=== PATIENT | male | born 1965 | race Caucasian/White ===

== ENCOUNTER 2018-03-18 00:23 | Emergency (ER) | payer MEDICARE, OTHER ==
--- NOTE | 2018-03-18 08:13 | RAD ---
PA AND LATERAL CHEST: History: Cough. FINDINGS: Comparison made with exam of 06-15-15. The heart size is normal. The lungs are expanded without focal areas of consolidation, pneumothorax, or pleural effusions. No acute osseous abnormality is seen. IMPRESSION: No acute process. POS: [facility]
== END 2018-03-18 01:23 | disposition home or self-care (01) ==
LOC: SCSER 00:23
DX: J20.9 Acute bronchitis, unspecified (principal); N18.6 End stage renal disease; F17.210 Nicotine dependence, cigarettes, uncomplicated; Z99.2 Dependence on renal dialysis; Z79.899 Other long term (current) drug therapy
CPT/HCPCS: 71046; 94640; J7620

== ENCOUNTER 2018-03-27 09:14 | Outpatient (CLI) | payer MEDICARE ==
[2018-03-27] MEDS ORDERED: ISOVUE-370 76%-LOCM 1 ML ONE (20:19)
== END 2018-03-27 09:15 | disposition home or self-care (01) ==
LOC: BICCT 09:14
PROVIDERS: ATTEND Internal Medicine Nephrology
DX: N28.89 Other specified disorders of kidney and ureter (principal); N26.1 Atrophy of kidney (terminal)
CPT/HCPCS: 74178

== ENCOUNTER 2018-11-08 14:28 | Emergency (ER) | payer MEDICARE ==
[2018-11-08] MEDS ORDERED: Metoclopramide HCl 10 MG/2 ML VIAL ONE ×2 (15:33→15:36)
[2018-11-08] MEDS ORDERED: Ketorolac Tromethamine 30 MG/ML VIAL ONE (15:33)
[2018-11-08] MEDS ORDERED: diphenhydrAMINE 50 MG/ML VIAL ONE (15:33)
[2018-11-08] MEDS ORDERED: Magnesium 2 GM/50 ML BAG (IN WATER) ONE (16:46)
[2018-11-08] MEDS ORDERED: methylPREDNISolone Sod Succ/PF 125 MG/2 ML VIAL ONE (16:46)
== END 2018-11-08 18:35 | disposition home or self-care (01) ==
LOC: ERS 14:28
DX: G43.909 Migraine, unspecified, not intractable, without status migrainosus (principal); N18.6 End stage renal disease; F17.210 Nicotine dependence, cigarettes, uncomplicated; Z79.899 Other long term (current) drug therapy
CPT/HCPCS: 96365; 96367; 96375; J1200; J1885; J2765; J2930

== ENCOUNTER 2018-12-14 09:14 | Emergency (ER) | payer MEDICARE ==
[2018-12-14] MEDS ORDERED: diphenhydrAMINE 50 MG/ML VIAL ONE (10:16)
[2018-12-14] MEDS ORDERED: Acetaminophen 500 MG TAB ONE (10:16)
[2018-12-14] MEDS ORDERED: Metoclopramide HCl 10 MG/2 ML VIAL ONE (10:16)
[2018-12-14] MEDS ORDERED: Ketorolac Tromethamine 30 MG/ML VIAL ONE (10:16)
[2018-12-14] MEDS ORDERED: methylPREDNISolone Sod Succ/PF 125 MG/2 ML VIAL ONE (10:52)
[2018-12-14] MEDS ORDERED: Magnesium 2 GM/50 ML BAG (IN WATER) ONE (10:52)
== END 2018-12-14 11:26 | disposition home or self-care (01) ==
LOC: ERS 09:14
DX: G43.909 Migraine, unspecified, not intractable, without status migrainosus (principal); I10 Essential (primary) hypertension; I12.0 Hypertensive chronic kidney disease with stage 5 chronic kidney disease or end stage renal disease; N18.6 End stage renal disease; F17.210 Nicotine dependence, cigarettes, uncomplicated; Z79.899 Other long term (current) drug therapy
CPT/HCPCS: 96365; 96375; J1200; J1885; J2765; J2930

== ENCOUNTER 2019-04-11 09:42 | Emergency (ER) | payer MEDICARE ==
[2019-04-11 10:07] LABS: #Basophils 0.1 thou/uL (0.0-0.2); #Eosinphils 0.4 thou/uL (0.0-0.7); #Lymphocytes 2.3 thou/uL (1.20-3.40); #Monocytes 0.5 thou/uL (0.11-0.59); #Neutrophils 4.4 thou/uL (1.40-6.50); %Basophils 1.5 % (0.0-1.0); %Lymphocytes 29.5 % (21.0-51.0); %Neutrophils 58.1 % (42.0-75.0); Mean Corpuscular HGB CONC 33.9 g/dL (32.0-36.0); Mean Corpuscular Hemoglobin 33.8 pg (27.0-31.0); Mean Corpuscular Volume 99.8 fL (78.0-98.0); Mean Platelet Volume 8.2 fL (7.4-10.4); Platelet Count 168 thou/uL (130-400); RBC Distribution Width 14.4 % (11.5-14.5); Red Blood Cell (RBC) Count 4.14 mill/uL (4.70-6.10); White Blood Cell (WBC) Count 7.6 thou/uL (4.8-10.8)
[2019-04-11 10:30] LABS: ALT (SGPT) Less than 7 U/L (8-55); AST (SGOT) 11 U/L (5-34); Albumin 3.7 g/dL (3.5-5.0); Alkaline Phosphatase 38 U/L (40-150); Anion Gap 20 mmol/L (10-20); BUN (Urea Nitrogen) 42 mg/dL (8.4-25.7); Bilirubin, Total 0.6 mg/dL (0.2-1.2); Calc. Creatinine Clearance 0 mL/min (70-130); Calcium 9.9 mg/dL (7.8-10.44); Carbon Dioxide 33 mmol/L (22-29); Chloride 85 mmol/L (98-107); Estimated GFR-MDRD 4; Globulin 2.7 g/dL (2.4-3.5); Glucose 87 mg/dL (70-105); Potassium 3.4 mmol/L (3.5-5.1); Protein, Total 6.4 g/dL (6.0-8.3); Sodium 135 mmol/L (136-145)
--- NOTE | 2019-04-11 11:13 | ULT ---
Ultrasound Doppler duplex venous right upper extremity: 04/11/2019 HISTORY: 53-year-old male with right upper extremity pain and swelling. TECHNIQUE: Grayscale, color-flow, and spectral analysis, of major veins of right upper extremity. FINDINGS: There is a dialysis fistulous connection at the antecubital region between the brachial artery and ce phalic vein. The cephalic vein is "aneurysmally" dilated, as expected for dialysis access. There is a large thrombus occupying approximately 75% of the cross-sectional area of the dilated cephalic vein , in the distal and mid arm. There is blood flow in this vein adjacent to the thrombus. The proximal portion of the cephalic vein has no thrombus, and has flow, as does the right brachial, basi lic, radial, ulnar, internal jugular, and subclavian, veins. Actually there is an obliquely orientated synthetic graft measuring approximately 2.5 to 3 cm, crossing a portion of the right subcl kathryn vein. There is little or no blood flow within this graft. The exact relationship of this graft with the subclavian vein is uncertain. IMPRESSION: 1. Arteriovenous dialysis fistula (dilated right cephalic vein) in the right arm that contains a nono ccluding large thrombus. 2. Obliquely oriented vascular stent in the right subclavian region which may be partially or complet yg occluded, despite the fact that the portions of the subclavian vein proximal and distal to it are patent. The exact relationship is uncertain.
== END 2019-04-11 11:37 | disposition home or self-care (01) ==
LOC: ERS 09:42
DX: T82.868A Thrombosis due to vascular prosthetic devices, implants and grafts, initial encounter (principal); I12.0 Hypertensive chronic kidney disease with stage 5 chronic kidney disease or end stage renal disease; F17.210 Nicotine dependence, cigarettes, uncomplicated; Z79.899 Other long term (current) drug therapy
CPT/HCPCS: 36415; 80053; 83880; 85025

== ENCOUNTER 2019-04-16 06:01 | Day surgery (SDC) | payer MEDICARE ==
--- NOTE | 2019-04-16 06:22 | HP ---
HISTORY OF PRESENT ILLNESS: Joni Wen is a 53-year-old male patient who I established a fistula in 2012, right Nael. This worked well until 2014 when it had to be revised due to multiple infiltrations and outflow obstructions to a more proximal fistula, antecubital vein to proximal radial artery had outflow basilic and cephalic vein. I had not seen him in several years. 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 Dr. Victoria at the [facility] has performed a fistulogram yesterday noting obstruction of the subclavian vein. The patient has a very painful right arm fistula, although patent and prominent pulsatile. They could not access it at [facility] where he dialyzes Friday, , and Friday. He is followed by Dr. Marquez. The patient has an excellent left wrist cephalic vein, palpable radial pulse. He has had bilateral inguinal hernia repairs. Has chronic umbilical pain for the last few years, but no evidence of umbilical hernia. I discussed with him regarding possibility of a peritoneal dialysis catheter and he is interested in that. We will discuss that with the dialysis center. Plan at this time is placement of a hemodialysis catheter as he has not dialyzed since earlier this week and could not dialyze yesterday. We will plan placement of a hemodialysis catheter, right or left IJ, possible groin tomorrow. IV sedation and local outpatient. He will dialyze tomorrow afternoon. Next week, we will return to the operating room under general anesthesia and plan ligation and excision of his painful right upper arm fistula, establishment of a left arm fistula, Nael type more than likely and most likely laparoscopic peritoneal dialysis catheter placement. He will discuss this with the peritoneal dialysis nurse and view the video and if he decides not to do this latter part, we will not. ALLERGIES: BACTRIM AND LATEX. MEDICATIONS: Amlodipine 10 mg a day, lisinopril 12.5 mg a day, carvedilol mg a day, valproic acid 250 mg twice a day, hydrocodone 10/25 as needed for pain. PAST MEDICAL HISTORY: Nephrotic syndrome, end-stage renal disease, on maintenance dialysis. PAST SURGICAL HISTORY: Bilateral inguinal hernia repair in [place] in 2000, renal biopsy in 2009, elbow surgery, fasciotomy, Nael fistula right arm 2012, revision 2014, and stent, right subclavian vein subsequently. PHYSICAL EXAMINATION: VITAL SIGNS: Blood pressure 133/61, pulse 68, temperature 98.6 degrees, weight 164 pounds. HEENT: Unremarkable. LUNGS: Clear to auscultation. CARDIAC: Regular rate and rhythm without murmur or gallop. ABDOMEN: Soft, flat, nontender. On standing, both groins without hernia. Testicles are normal. Umbilicus without hernia. Mild pain on palpation. Flat abdomen. Nontender. No masses palpable. EXTREMITIES: Radial pulses bilaterally excellent to cephalic vein, wrist and forearm and with a good antecubital vein, all good for primary fistula left arm. Prominent fistula right upper arm with prominent pulsations, very tender without evidence of infection. ASSESSMENT/PLAN: Dialysis fistula malfunction with subclavian vein obstruction right with a stent, not amenable to further dialysis access, right arm. PLAN: As noted above, left arm fistula ligation and right arm fistula, hemodialysis catheter, laparoscopic peritoneal dialysis catheter. He understands risks and benefits, consents. Job ID: [id number]
[2019-04-16] MEDS ORDERED: Bupivacaine HCl 0.5%/Epinephrine 1:200,000/PF 30 ml Vial ONE (06:36)
[2019-04-16] MEDS ORDERED: Lidocaine 1% (PF) 30 ML VIAL ONE (06:36)
[2019-04-16] MEDS ORDERED: Sodium Chloride 0.9% 10 ML ONE ×2 (06:39→07:18)
[2019-04-16 06:58] LABS: #Basophils 0.1 thou/uL (0.0-0.2); #Eosinphils 0.3 thou/uL (0.0-0.7); #Monocytes 0.6 thou/uL (0.11-0.59); #Neutrophils 3.6 thou/uL (1.40-6.50); %Basophils 1.6 % (0.0-1.0); %Eosinophils 5.2 % (0.0-10.0); %Lymphocytes 29.9 % (21.0-51.0); %Monocytes 8.8 % (0.0-10.0); %Neutrophils 54.5 % (42.0-75.0); Hemoglobin 12.2 g/dL (14.0-18.0); Mean Corpuscular HGB CONC 33.5 g/dL (32.0-36.0); Mean Corpuscular Hemoglobin 33.5 pg (27.0-31.0); Platelet Count 203 thou/uL (130-400); RBC Distribution Width 13.9 % (11.5-14.5); Red Blood Cell (RBC) Count 3.63 mill/uL (4.70-6.10); White Blood Cell (WBC) Count 6.5 thou/uL (4.8-10.8)
[2019-04-16] MEDS ORDERED: Meperidine HCl/PF 25 MG/ML VIAL ONE (06:58)
[2019-04-16] MEDS ORDERED: Midazolam HCl 2 mg/2 ml Vial ONE (06:58)
[2019-04-16] MEDS ORDERED: Heparin 5,000 UNITS/ML VIAL ONE (07:10)
[2019-04-16] MEDS ORDERED: Protamine Sulfate 50 MG/5 ML VIAL ONE (07:10)
[2019-04-16] MEDS ORDERED: Lidocaine 2% PF 5 ML VIAL ONE (07:11)
[2019-04-16 07:34] LABS: Potassium 4.3 mmol/L (3.5-5.1)
[2019-04-16] MEDS ORDERED: HYDROcodone/Acetaminophen 5/325 mg Tablet ONE (11:58)
--- NOTE | 2019-04-16 12:26 | RAD ---
CHEST 1 VIEW: HISTORY: Status post hemodialysis catheter placement. FINDINGS: Left-sided hemodialysis catheter placement without pneumothorax or pleural effusion or other acute pr ocess. IMPRESSION: Left hemodialysis catheter placement without complication. No significant new process. POS: [facility]
[2019-04-16] MEDS ORDERED: Heparin 10,000 UNITS/ 10 ML VIAL ONE (12:44)
--- NOTE | 2019-04-16 13:34 | OP ---
DATE OF PROCEDURE: 04/16/2019 PREOPERATIVE DIAGNOSES: End-stage renal disease, right subclavian vein stent with occlusion, venous hypertension, right arm with intractable pain, aneurysmal dilatation, right upper arm cephalic vein fistula, and need of dialysis access. POSTOPERATIVE DIAGNOSES: End-stage renal disease, right subclavian vein stent with occlusion, venous hypertension, right arm with intractable pain, aneurysmal dilatation, right upper arm cephalic vein fistula, and need of dialysis access. PROCEDURE PERFORMED: Placement of the left internal jugular vein cuffed tunneled hemodialysis catheter. Right internal jugular vein cannulated, but J-wire would not thread indicating outflow obstruction. Fluoroscopy use. Ligation of right arm fistula with excision of aneurysm and layered closure of 10 cm incision upper arm. Brachial radial artery repair. ESTIMATED BLOOD LOSS: 2500 mL blood loss. 3 units of blood transfused. Note during the procedure, the inflow of the cephalic vein fistula from the proximal radial artery was dissected free and there was hemorrhage requiring dissection resulted in the blood loss. ANESTHESIA: General, local 0.5% Marcaine with epinephrine 30 mL mixed to 2% Xylocaine 10 mL, total volume used between the surgical sites. DESCRIPTION OF PROCEDURE: The patient was taken to the operating room, where under general anesthesia, neck, chest, and right upper extremity were prepared with ChloraPrep and draped in routine fashion. Local anesthetic was infiltrated into the skin and subcutaneous tissue about all operative sites. Initially, using ultrasound guidance, I cannulated the right internal jugular vein, but the J-wire not thread, indicating outflow obstruction. Left internal jugular vein was cannulated with trocar catheter under ultrasound guidance, and J-wire threaded, fluoroscopically noted to be in the superior vena cava. Stab incision was made at the J-wire entry site and over the planned exit site left chest infraclavicular, and using the tunneling device, a precurved [employer] cuffed-tunneled hemodialysis catheter tunneled between the 2 incisions, placed the fabric cuff beneath the skin exit site. Catheter was secured with 2 interrupted sutures of 3-0 nylon. Sterile dressings applied. The small and medium size dilators were placed with J-wire and the internal jugular vein removed. Dilator and Peel-Away sheath placed under fluoroscopic visualization in the superior vena cava, and dilator and J-wire were removed, catheter placed through the Peel-Away sheath, and Peel-Away sheath removed. Fluoroscopic images revealed good line placement. Platysma was approximated with 4-0 Monocryl, skin with subdermal 4-0 Monocryl and Dargan glue and sterile dressings applied. Each port aspirated blood, flushed with saline solution and heparinized saline solution 1000 units heparin per mL indicating volume of the port. Attention was then turned to the right arm. He had a large aneurysmal dilatation of his cephalic vein fistula upper arm with basilic vein branch patent and obstruction of the outflow of the subclavian vein that had been previously stented. This was extremely painful. There was large aneurysmal dilatation removed. Incision was first made in the antecubital area through an old scar, carried down skin and subcutaneous tissue and the inflow of the fistula dissected free. In doing so, there was hemorrhage. I then had to extend the incision and considering the bleeding, I made another incision in the medial upper arm just above the antecubital fossa and dissected the brachial artery free, and the patient was given 6000 units of heparin intravenously, and then, I clamped the brachial artery to allow better arterial inflow control. Once this was performed, continued finger pressure was held to control the hemorrhage in the forearm. I then returned to the forearm, enlarged the incision and dissected the fistula. The venous outflow cephalic vein was ligated with a 2-0 silk tie. The basilic vein outflow was ligated with 2-0 silk tie, these were divided and the stump clamped. I was then able to dissect this down identifying the problem, where the vein was markedly dilated at the arterial anastomosis, and this was where it had torn and where it was hemorrhaging. Even though I controlled the proximal brachial artery, there was still considerable bleeding retrograde from the radial artery and ulnar artery. This radial artery was identified, dissected free, clamped with a vascular clamp. I was then able to dissect and identified the problem. There was enough venous cuff from the previous anastomosis to close this transversely. I then closed this transversely with continuous suture of 6-0 Prolene. Once this was closed, vascular clamps were released and there was good flow in the artery. The patient was given 50 mg of protamine by Anesthesia. Good hemostasis was noted. I then turned my attention to the fistula aneurysm in the upper arm. An ellipse of skin was excised and the aneurysm dissected free from surrounding tissues. Branches divided between 3-0 silk ties. The inflow of the AV fistula aneurysm was then ligated with 2-0 silk tie as well as the outflow and the aneurysmal dilatation dissected free and excised, discarded. Hemostasis was gained with the cautery. Surgicel was placed in the surgical bed. Subcutaneous tissue was approximated with 3-0 Monocryl, skin with subdermal 4-0 Monocryl. The other incision was closed likewise and Dargan glue applied. Local anesthetic was infiltrated into the skin and subcutaneous tissue about the operative site. The patient procedure well. Job ID: [id number]
--- NOTE | 2019-04-17 13:53 | EKG ---
Test Reason : PREOP Blood Pressure : / mmHG Vent. Rate : 066 BPM Atrial Rate : 066 BPM P-R Int : 182 ms QRS Dur : 106 ms QT Int : 394 ms P-R-T Axes : 061 058 051 degrees QTc Int : 413 ms Normal sinus rhythm Normal ECG When compared with ECG of 10-OCT-2016 05:20, No significant change was found Confirmed by DR. Queenie HERMAN ([id number]) on 04/17/2019 1:52:52 PM Referred By: TONI Confirmed By:DR. Queenie HERMAN
== END 2019-04-16 13:00 | disposition home or self-care (01) ==
LOC: SDC 06:01
PROVIDERS: ATTEND Specialist
PROC: 05HN33Z Insertion of Infusion Device into Left Internal Jugular Vein, Percutaneous Approach (ICD-10-PCS; principal; 2019-04-16)
PROC: 05LD0ZZ Occlusion of Right Cephalic Vein, Open Approach (ICD-10-PCS; 2019-04-16)
DX: I77.0 Arteriovenous fistula, acquired (principal); N18.6 End stage renal disease; I87.301 Chronic venous hypertension (idiopathic) without complications of right lower extremity; Z79.899 Other long term (current) drug therapy; Z88.1 Allergy status to other antibiotic agents; Z88.5 Allergy status to narcotic agent; Z91.040 Latex allergy status
CPT/HCPCS: 36430; 36558; 37607; 71045; 84132; 85025; 86850; 86900; 86901; 86920; 93005; C1752; C1769; P9016; 36415; 93010; J0670; J0690; J1642; J1644; J2001; J2175; J2250; J2720

== ENCOUNTER 2019-04-21 09:15 | Day surgery (SDC) | payer MEDICARE ==
[2019-04-20 15:14] VITALS: BMI 23.6
[2019-04-21 10:27] LABS: #Basophils 0.1 thou/uL (0.0-0.2); #Eosinphils 0.4 thou/uL (0.0-0.7); #Lymphocytes 2.1 thou/uL (1.20-3.40); #Monocytes 0.6 thou/uL (0.11-0.59); %Basophils 1.3 % (0.0-1.0); %Eosinophils 5.5 % (0.0-10.0); %Lymphocytes 28.5 % (21.0-51.0); %Monocytes 8.6 % (0.0-10.0); Hemoglobin 12.2 g/dL (14.0-18.0); Mean Corpuscular HGB CONC 33.2 g/dL (32.0-36.0); Mean Corpuscular Hemoglobin 32.9 pg (27.0-31.0); Platelet Count 243 thou/uL (130-400); RBC Distribution Width 13.4 % (11.5-14.5); Red Blood Cell (RBC) Count 3.71 mill/uL (4.70-6.10); White Blood Cell (WBC) Count 7.2 thou/uL (4.8-10.8)
[2019-04-21 10:46] LABS: Anion Gap 14 mmol/L (10-20); BUN (Urea Nitrogen) 17 mg/dL (8.4-25.7); Calc. Creatinine Clearance 10 mL/min (70-130); Calcium 9.3 mg/dL (7.8-10.44); Carbon Dioxide 32 mmol/L (22-29); Chloride 93 mmol/L (98-107); Estimated GFR-MDRD 7; Glucose 69 mg/dL (70-105); Sodium 135 mmol/L (136-145)
[2019-04-21] MEDS ORDERED: Fentanyl 100 MCG/2 ML VIAL ONE (11:31)
[2019-04-21] MEDS ORDERED: Heparin 5,000 UNITS/ML VIAL ONE (11:32)
[2019-04-21] MEDS ORDERED: Lidocaine 2% PF 5 ML VIAL ONE (11:32)
[2019-04-21] MEDS ORDERED: Protamine Sulfate 50 MG/5 ML VIAL ONE (11:32)
[2019-04-21] MEDS ORDERED: Bupivacaine HCl 0.5%/Epinephrine 1:200,000/PF 30 ml Vial ONE (11:32)
[2019-04-21] MEDS ORDERED: Heparin 10,000 UNITS/ 10 ML VIAL ONE ×2 (14:26→14:37)
[2019-04-21] MEDS ORDERED: PHENYLEPHRINE-NS 100 MCG/ML 10 ML SYRINGE ONE (14:37)
[2019-04-21] MEDS ORDERED: PROPOFOL 200 MG/20 ML VIAL ONE (14:37)
[2019-04-21] MEDS ORDERED: Ondansetron PF 4 MG/2 ML Vial ONE (14:37)
[2019-04-21] MEDS ORDERED: ePHEDrine 50 MG/ML VIAL ONE (14:37)
--- NOTE | 2019-04-21 17:49 | OP ---
DATE OF PROCEDURE: 04/21/2019 PREOPERATIVE DIAGNOSES: End-stage renal disease, dysfunctional right arteriovenous fistula, status post ligation, subclavian vein occlusion, cephalic vein outflow, right arm problems requiring ligation, left arm Nael fistula, radial artery of good quality, cephalic vein outflow calibrated to 3.5 mm coronary dilator, branches ligated laterally. ANESTHESIA: General and local 0.5% Marcaine with epinephrine 30 mL mixed with 2% Xylocaine 10 mL, 10 mL mixture used. DESCRIPTION OF PROCEDURE: The patient was taken to the operating room, where under general anesthesia, left upper extremity was prepared with ChloraPrep and draped in routine fashion. Incision was longitudinally made between this cephalic vein and radial artery at the wrist, carried through the skin and subcutaneous tissue, and the cephalic vein and radial artery were dissected free. The radial artery was controlled proximally and distally, and cephalic vein ligated on the hand side with a 3-0 silk tie, divided, spatulated, and interrogated with coronary dilators, passing coronary dilators from 2 mm to 3.5 mm, unobstructed out the outflow. It had good back bleeding. It was flushed with heparinized saline solution. The patient was given 6000 units of heparin intravenously by Anesthesia. A vascular clamp was placed on the cephalic vein. Radial arteriotomy was made sharply, elongated with Starr scissors for 2.5 cm anastomosis and cephalic vein likely spatulated accordingly, and cephalic vein to side radial artery anastomosis was created with continuous suture of 6-0 Prolene. Good hemostasis was noted as vascular clamps were released. There was good flow in the fistula. The patient was given 25 mg protamine intravenously by Anesthesia. There was good Doppler signal in the venous outflow with Nael fistula. There was a branch point laterally that was ligated through a small incision, ligated with 4-0 silk ties. Incisions were approximated by approximating subcutaneous tissue with 3-0 Monocryl and skin with subdermal 4-0 Monocryl, and [place] glue applied. Job ID: [id number]
== END 2019-04-21 14:40 | disposition home or self-care (01) ==
LOC: SDC 09:15
PROVIDERS: ATTEND Specialist
PROC: 031C0ZF Bypass Left Radial Artery to Lower Arm Vein, Open Approach (ICD-10-PCS; principal; 2019-04-21)
DX: N18.6 End stage renal disease (principal); T82.590A Other mechanical complication of surgically created arteriovenous fistula, initial encounter; Z79.899 Other long term (current) drug therapy; Z88.2 Allergy status to sulfonamides; Z88.8 Allergy status to other drugs, medicaments and biological substances; Z91.040 Latex allergy status; Z91.018 Allergy to other foods; Z99.2 Dependence on renal dialysis
CPT/HCPCS: 80048; 85025; J0670; J0690; J1644; J2001; J2405; J2704; J2720; J3010; J3490

== ENCOUNTER 2019-08-26 10:35 | Inpatient (IN) | payer MEDICARE ==
[~2019-08-26 10:35] MED LIST: ISOVUE-370 76%-LOCM 1 ML ONE
[2019-08-26] MEDS ORDERED: Lorazepam 2 MG/ML VIAL ONE (10:51)
[2019-08-26 10:58] LABS: #Basophils 0.1 thou/uL (0.0-0.2); #Eosinphils 0.1 thou/uL (0.0-0.7); #Lymphocytes 1.1 thou/uL (1.20-3.40); #Monocytes 0.4 thou/uL (0.11-0.59); #Neutrophils 4.6 thou/uL (1.40-6.50); %Basophils 1.5 % (0.0-1.0); %Eosinophils 1.5 % (0.0-10.0); %Lymphocytes 17.5 % (21.0-51.0); %Monocytes 6.4 % (0.0-10.0); %Neutrophils 73.1 % (42.0-75.0); Hemoglobin 10.7 g/dL (14.0-18.0); Mean Corpuscular HGB CONC 35.3 g/dL (32.0-36.0); Mean Corpuscular Hemoglobin 32.5 pg (27.0-31.0); Mean Corpuscular Volume 91.9 fL (78.0-98.0); Mean Platelet Volume 8.2 fL (7.4-10.4); Platelet Count 149 thou/uL (130-400); RBC Distribution Width 14.7 % (11.5-14.5); Red Blood Cell (RBC) Count 3.31 mill/uL (4.70-6.10); White Blood Cell (WBC) Count 6.3 thou/uL (4.8-10.8)
[2019-08-26 11:03] LABS: Prothrombin Time 12.7 SEC (12.0-14.7)
[2019-08-26 11:04] LABS: PTT 32.3 SEC (22.9-36.1)
--- NOTE | 2019-08-26 11:06 | CT ---
Exam: CTA neck with contrast CTA head with contrast HISTORY: Altered mental status and combative COMPARISON: None TECHNIQUE: 1. Multiple contiguous axial images were obtained and a CTA of the neck with contrast. 3-D sagittal a nd coronal MIP reformats were performed. 2. Multiple contiguous axial images were obtained and a CTA of the head with contrast. 3-D sagittal a nd coronal MIP reformats were performed. FINDINGS: This exam is limited secondary to motion artifact. CTA NECK: Aortic arch: Normal origin of the carotid arteries from the arch. No significant atherosclerotic dise ase of the subclavian arteries. Right common carotid artery: No significant atherosclerotic disease or narrowing. Mild atheroscleroti c disease is seen in the distal common carotid artery. Left common carotid artery: No significant atherosclerotic disease or narrowing. Mild atherosclerotic disease is seen in the distal common carotid artery. Right internal carotid artery: No significant atherosclerotic disease or narrowing per NASCET criteri a Right external carotid artery: No significant atherosclerotic disease or narrowing Left internal carotid artery: No significant atherosclerotic disease or narrowing per NASCET criteri a Left external carotid artery: No significant atherosclerotic disease or narrowing Right cervical vertebral artery: No significant atherosclerotic disease or narrowing Left cervical vertebral artery: No significant atherosclerotic disease or narrowing No cervical adenopathy. The lung apices are unremarkable. The osseous structures are unremarkable. CTA HEAD: Right intracranial internal carotid artery: Patent without narrowing or occlusion Right anterior cerebral artery: Patent without narrowing or occlusion Right middle cerebral artery: Patent without narrowing or occlusion Left intracranial internal carotid artery: Patent without narrowing or occlusion Left anterior cerebral artery: Patent without narrowing or occlusion Left middle cerebral artery: Patent without narrowing or occlusion No aneurysmal dilatation is seen in the anterior circulation. Right vertebral artery: Patent without narrowing or occlusion Left vertebral artery: Patent without narrowing or occlusion Basilar artery: Patent without narrowing or occlusion The posterior cerebral arteries and cerebellar arteries are patent without narrowing or occlusion. No aneurysmal dilatation is seen in the posterior circulation. IMPRESSION: 1. No significant CTA abnormality of the neck 2. No significant CTA abnormality of the head Dr. Henry Notified of findings at 11:03 AM on 08/26/2019.
[2019-08-26] MEDS ORDERED: hydrALAZINE 20 MG/ML VIAL ONE (11:11)
[2019-08-26 11:14] LABS: ALT (SGPT) Less than 7 U/L (8-55); AST (SGOT) 13 U/L (5-34); Albumin 4.2 g/dL (3.5-5.0); Alkaline Phosphatase 40 U/L (40-110); Anion Gap 28 mmol/L (10-20); BUN (Urea Nitrogen) 20 mg/dL (8.4-25.7); Bilirubin, Total 0.4 mg/dL (0.2-1.2); CK (CPK) 177 U/L (30-200); Calc. Creatinine Clearance 0 mL/min (70-130); Carbon Dioxide 24 mmol/L (22-29); Chloride 88 mmol/L (98-107); Estimated GFR-MDRD 6; Globulin 2.9 g/dL (2.4-3.5); Glucose 106 mg/dL (70-105); Potassium 3.9 mmol/L (3.5-5.1); Protein, Total 7.1 g/dL (6.0-8.3); Sodium 136 mmol/L (136-145)
--- NOTE | 2019-08-26 11:41 | CT ---
CT HEAD NONCONTRAST: Date: 08/26/19 INDICATION: Stroke alert. FINDINGS: There is no evidence of acute intracranial hemorrhage, mass effect, or midline shift. Paranasal sinus es are clear. Incidental note of radiopaque foreign body of the inferior right buccal soft tissues, a nteriorly. IMPRESSION: No acute intracranial hemorrhage or mass effect. Telephone call placed to Dr. Henry at 1042 hours on 08/26/19. CODE CR.
[2019-08-26] MEDS ORDERED: niCARdipine 20MG In NaCl 20 MG/200 ML BAG ONE (11:43)
--- NOTE | 2019-08-26 11:48 | CT ---
CT CERVICAL SPINE WITH MULTIPLANAR RECONSTRUCTION: Date: 08/26/19 INDICATION: Trauma. FINDINGS: Cervical vertebra maintain normal height and alignment. Mild degenerative changes are noted with ante rior osteophytes and posterior spondylitic change. There is no evidence of fracture identified. IMPRESSION: There are mild degenerative changes of the cervical spine. No evidence of acute fracture. POS: [facility]
[2019-08-26] MEDS ORDERED: Ondansetron PF 4 MG/2 ML Vial ONE (14:05)
[2019-08-26 14:07] LABS: Troponin I 0.029 ng/mL (< 0.028)
[2019-08-26] MEDS ORDERED: Lorazepam 2 MG/ML VIAL SLOW IVP PRN (14:39)
[2019-08-26] MEDS ORDERED: niCARdipine 40MG In NaCl 40 MG/200 ML BAG IVPB SCH (14:45)
--- NOTE | 2019-08-26 15:50 | CON ---
DATE OF CONSULTATION: 08/26/2019 CONSULTING PHYSICIAN: Dr. Jenkins. REASON FOR CONSULTATION: End-stage renal disease evaluation. REASON FOR ADMISSION: Headache and seizures. HISTORY OF PRESENT ILLNESS: A 53-year-old male with a history of end-stage renal disease, on hemodialysis; anemia; gastroesophageal reflux disease; came to the hospital with above complaints. The patient's blood pressure was found to be high, also has seizure and headache, and was sent to the hospital. He is seen in the ER, is sedated now, and no family members available. PAST MEDICAL HISTORY: Positive for end-stage renal disease, anemia, gastroesophageal reflux disease. PAST SURGICAL HISTORY: Dialysis access placement. HOME MEDICATIONS: Pending. ALLERGIES: LATEX, STRAWBERRY, ZOLPIDEM. SOCIAL HISTORY: No smoking, alcohol, or illicit drugs. FAMILY HISTORY: No history of kidney disease. REVIEW OF SYSTEMS: Cannot be obtained due to sedation. PHYSICAL EXAMINATION: GENERAL: This is a well-built male, sedative. VITAL SIGNS: Temperature 98.6, pulse 78, respiratory rate 18, blood pressure 170/90. HEENT: Atraumatic and normocephalic. Oral mucosa moist. NECK: Supple. CVS: S1 and S2 heard. RESPIRATORY: Clear. GI: Abdomen is soft. MUSCULOSKELETAL: No tenderness. No edema. DERMATOLOGIC: No skin rash. NEUROLOGIC: Somnolent. LABORATORY DATA: Hemoglobin is 10.7, potassium 3.9, BUN is 20, and creatinine is 8.7. ASSESSMENT AND PLAN: 1. End-stage renal disease. No acute indication for dialysis. We will continue on dialysis as tolerated. 2. Hypertension. Continue home medication. Continue on a Cardene drip and home medications. 3. Edema, controlled. 4. Anemia of chronic disease, stable. 5. Plan to continue dialysis Friday, Friday, Friday. No dialysis today. Continue medication for blood pressure control. Thank you for the consult. Job ID: [id number]
--- NOTE | 2019-08-26 16:36 | CON ---
DATE OF CONSULTATION: 08/26/2019 REASON FOR CONSULTATION: Hypertensive emergency. HISTORY OF PRESENT ILLNESS: The patient is a 53-year-old male who came into the hospital today with a profoundly elevated blood pressure. I believe it was over 200. He was placed on a Cardene drip. It is already down to 160/85 and he feels better. PAST MEDICAL HISTORY: 1. End-stage renal disease, requiring hemodialysis. 2. Anemia. 3. Hypertension. 4. Gastroesophageal reflux. PAST SURGICAL HISTORY: Left forearm AV shunt placement. ALLERGIES: LATEX, AMBIEN, SULFA, AND STRAWBERRIES. MEDICATIONS: Prior to admission 1. Lisinopril. 2. Hydrocodone. 3. Depakote. 4. Coreg. 5. Norvasc. SOCIAL HISTORY: Does not smoke. Does not consume alcohol. FAMILY MEDICAL HISTORY: Unremarkable. REVIEW OF SYSTEMS: 12-point review of systems otherwise negative. PHYSICAL EXAMINATION: VITAL SIGNS: Blood pressure 160/80, pulse 65, respirations 18. GENERAL: He is calm, alert, in no distress. HEENT: Unremarkable. NECK: No adenopathy, JVD or bruits. LUNGS: Clear. CARDIAC: S1, S2. Regular. ABDOMEN: Soft. EXTREMITIES: No edema. LABORATORY DATA: White blood cell count 6.3, hematocrit 30, platelet count 149. Sodium 136, potassium 3.9, chloride 88, CO2 of 24, BUN 20, creatinine 8.7, glucose 106. Prolactin level 34. ASSESSMENT: 1. Hypertensive emergency. 2. Chronic renal failure. PLAN: The patient will be on a Cardene drip at least temporarily and hopefully weaned off quickly. I agree with current plan by the Hospitalist. We will be happy to follow. Job ID: [id number]
--- NOTE | 2019-08-26 16:43 | HP ---
CHIEF COMPLAINTS: Loss of consciousness. HISTORY OF PRESENT ILLNESS: This patient is a 53-year-old male who presented via the emergency department. 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 Marquez. The patient apparently was at home today. He had run out of his medications and could not afford to get them per Dr. Marquez. He tried to assist the patient in figuring out a way to get him something in order to help with his blood pressure. He was apparently found by his on the bathroom floor today, she checked him out, thought he was okay, got him up in a chair, she walked away. She heard a button. He had fallen over onto the floor. It is unclear if he hit his head or not. She subsequently called an ambulance. He was brought to the emergency department. When the EMS arrived, the patient's reported the patient had began seizing after he fell and that lasted over a minute. EMS found the patient confused, complaining of a headache. In the emergency department, the patient's blood pressure was noted to be as high as 221/123 and 243/108 with a highest systolic getting up to 255. The patient was given medications. Blood pressure has improved. He is still groggy at the moment. He is able to answer some questions, but not reliably. PAST MEDICAL HISTORY: Primarily obtained from the record and attempts to talk to the patient as well. Includes hypertension, end-stage renal disease, and migraine headaches. The patient says he has frequent severe headaches that may last from days to weeks. These have been going on for months. PAST SURGICAL HISTORY: Dialysis fistula, left upper extremity. Left elbow infection. Hernia repair x2. FAMILY HISTORY: Unknown. The patient is adopted. SOCIAL HISTORY: The patient is a nondrinker, nondrug user. He does smoke 4 to 5 cigarettes a day. He is . CURRENT MEDICATIONS: Include: 1. Pantoprazole 40 mg daily. 2. Carvedilol 25 mg b.i.d. 3. Lisinopril 40 mg daily. 4. Amlodipine 5 mg daily. 5. Valproic acid 250 mg b.i.d. 6. Auryxia 210 mg one p.o. daily. ALLERGIES: LATEX, NATURAL RUBBER, STRAWBERRY, SULFAMETHOXAZOLE, TRIMETHOPRIM, AND ZOLPIDEM. PHYSICAL EXAMINATION: VITAL SIGNS: Most recent recorded vital signs; blood pressure 158/66, pulse 87, respirations 15, and O2 saturation 99% on room air. The patient's blood pressure had been kicking back up to close to 180. GENERAL: At the time of my exam, he is sleepy, does awaken. He will try to converse, but is still very sleepy and groggy. He seems to generally make sense when speaking; however, it is difficult to get in the stay awake to finish the discussion. HEENT: PERRL. No OP lesions. He has some photophobia noted. NECK: Supple and symmetric. HEART: Regular rate and rhythm without murmurs, gallops, or rubs. LUNGS: Clear to auscultation bilaterally with good chest wall expansion and air exchange. ABDOMEN: Soft, nontender, and nondistended. Positive bowel sounds. No masses. No organomegaly. EXTREMITIES: No cyanosis, clubbing, or edema. PSYCHIATRIC: Again, he is groggy and lethargic. NEUROLOGIC: The patient is moving all extremities spontaneously. He seems to be speaking appropriately and relatively clearly. LABORATORY DATA: White count 6.3, hemoglobin 10.7, and platelets 149. INR is 1.0. Sodium 136, potassium 3.9, chloride 88, CO2 of 24, BUN 20, creatinine 8.72, glucose 106, AST 13, ALT is less than 7, ammonia 20. CK 177. Initial troponin less than 0.01, subsequent 0.029. Albumin 4.2, lipase 10. TSH is 0.329. IMAGING STUDIES: CT of the brain, no acute intracranial process. CTA of the head and neck, negative. CT of the C-spine, negative. EKG, sinus arrhythmia, 78 beats per minute, nonspecific changes. IMPRESSION AND PLAN: 1. Hypertensive emergency. The patient appears to have run out of his blood pressure medicines, likely contributing to part of the problem. His blood pressure was extremely high on arrival here. It is possible the patient's headaches have been due to hypertensive encephalopathy that became severe enough today to cause loss of consciousness and seizure. The patient is now on a Cardene drip and seems to be doing somewhat better. We will admit to the ICU. Resume the Cardene drip. Discussed the case with his malt house operator and made Pulmonary Critical Care aware. We will resume his oral medications as well. 2. New onset seizure, likely due to hypertensive encephalopathy. We will provide p.r.n. Ativan in case he has any additional seizures. We will consult Neurology as well. In light of his chronic headache condition and new onset of the seizures, we will also obtain an MRI of the brain. 3. Headaches. The patient describes them as cluster headaches. It is certainly possible, he is on Depakote without a known history of seizures. Therefore, I suspect it is a treatment for his headache syndrome. 4. End-stage renal disease, on dialysis. Made Dr. Marquez aware. He is here evaluating the patient now. 5. Chronic anemia, secondary to chronic kidney disease, stable. 6. Indeterminate troponin. We will continue to trend as it is slightly higher than the preceding value, although I do not suspect the patient had a primary cardiac event. It is certainly possible, we will keep him on the telemetry in the ICU. Job ID: [id number]
--- NOTE | 2019-08-26 17:05 | MRI ---
MRI BRAIN NONCONTRAST: DATE: 08/26/2019 HISTORY: 53-year-old male with acute stroke symptoms, headache, and seizure FINDINGS: All of the images are degraded by patient motion, some of the sequences severely so. There is no obst ructive hydrocephalus. There is no midline shift or any other evidence of mass effect. There is no extra-axial fluid collection. There are mild chronic ischemic white matter changes due to microvascul ar atherosclerosis. There is otherwise no major intra-axial signal abnormality, recent hemorrhage, or restricted diffusion. IMPRESSION: 1) mild chronic ischemic white matter changes. 2) otherwise negative
[2019-08-26 17:44] LABS: Troponin I 0.035 ng/mL (< 0.028)
[2019-08-26] MEDS: Heparin 5,000 UNITS/ML VIAL SC SCH ×2 (19:31→23:05)
[2019-08-26] MEDS: Carvedilol 25 MG TAB PO SCH (19:32)
[2019-08-26] MEDS: niCARdipine 25 MG in Sodium Chloride 0.9% 250 ML 240 ML IVPB SCH (19:38)
[2019-08-26] MEDS ORDERED: Valproic Acid 250 MG CAP PO SCH ×2 (21:00→23:00)
[2019-08-26] MEDS: HYDROcodone/Acetaminophen 10/325 mg Tablet PO PRN (23:04)
[2019-08-26 23:38] VITALS: BMI 22.1
[2019-08-27] MEDS: niCARdipine 25 MG in Sodium Chloride 0.9% 250 ML 240 ML IVPB SCH ×2 (00:02→07:56)
[2019-08-27] MEDS: HYDROcodone/Acetaminophen 10/325 mg Tablet PO PRN ×2 (02:41→08:13)
[2019-08-27] MEDS: Ondansetron PF 4 MG/2 ML Vial SLOW IVP PRN ×2 (02:41→08:28)
[2019-08-27 06:53] LABS: #Basophils 0.1 thou/uL (0.0-0.2); #Monocytes 0.4 thou/uL (0.11-0.59); %Basophils 1.2 % (0.0-1.0); %Eosinophils 0.9 % (0.0-10.0); %Lymphocytes 23.1 % (21.0-51.0); %Monocytes 8.4 % (0.0-10.0); %Neutrophils 66.3 % (42.0-75.0); Hemoglobin 9.5 g/dL (14.0-18.0); Mean Corpuscular HGB CONC 34.1 g/dL (32.0-36.0); Mean Corpuscular Hemoglobin 32.3 pg (27.0-31.0); Mean Corpuscular Volume 94.6 fL (78.0-98.0); Mean Platelet Volume 8.2 fL (7.4-10.4); Platelet Count 128 thou/uL (130-400); Red Blood Cell (RBC) Count 2.95 mill/uL (4.70-6.10); White Blood Cell (WBC) Count 4.5 thou/uL (4.8-10.8)
[2019-08-27 07:15] LABS: ALT (SGPT) Less than 7 U/L (8-55); AST (SGOT) 14 U/L (5-34); Albumin 3.7 g/dL (3.5-5.0); Alkaline Phosphatase 37 U/L (40-110); Anion Gap 21 mmol/L (10-20); BUN (Urea Nitrogen) 28 mg/dL (8.4-25.7); Bilirubin, Total 0.3 mg/dL (0.2-1.2); Calc. Creatinine Clearance 8 mL/min (70-130); Calcium 8.8 mg/dL (7.8-10.44); Carbon Dioxide 31 mmol/L (22-29); Chloride 86 mmol/L (98-107); Estimated GFR-MDRD 5; Globulin 2.8 g/dL (2.4-3.5); Glucose 77 mg/dL (70-105); Potassium 3.7 mmol/L (3.5-5.1); Protein, Total 6.5 g/dL (6.0-8.3); Sodium 134 mmol/L (136-145)
[2019-08-27] MEDS: Carvedilol 25 MG TAB PO SCH ×2 (07:59→16:01)
[2019-08-27] MEDS: Lisinopril 20 MG TAB PO SCH (08:12)
[2019-08-27] MEDS: Amlodipine 10 MG TAB PO SCH (08:13)
[2019-08-27] MEDS: Heparin 5,000 UNITS/ML VIAL SC SCH ×3 (08:14→21:33)
[2019-08-27] MEDS: Valproic Acid 250 MG CAP PO SCH ×2 (08:17→21:33)
[2019-08-27] MEDS ORDERED: FLU VACC QS2019-20(6MOS UP)/PF 60 MCG/0.5 ML SYRINGE IM ONE (09:00)
[2019-08-27] MEDS ORDERED: Pantoprazole 40 MG VIAL IVP SCH (09:00)
[2019-08-27] MEDS ORDERED: Dihydroergotamine Mesylate 1 MG/ML AMP SLOW IVP PRN (09:41)
[2019-08-27] MEDS ORDERED: Metoclopramide HCl 10 MG/2 ML VIAL IVP PRN (09:42)
[2019-08-27] MEDS ORDERED: Labetalol HCl 100 MG/20 ML VIAL SLOW IVP PRN (09:46)
--- NOTE | 2019-08-27 09:48 | PRG ---
DATE OF SERVICE: 08/27/2019 SUBJECTIVE: The patient is still complaining of headache. Has had no further seizure episodes. He is continued on a Cardene drip at 2.5 mg/hour, but was given his antihypertensives earlier this morning. OBJECTIVE: VITAL SIGNS: His blood pressure has generally been running in the systolic 140s, temperature 98.7, pulse 67, O2 saturation 100%. HEENT: Unremarkable. NECK: No JVD. CHEST: Clear. CARDIAC: S1 and S2. Regular. ABDOMEN: Soft. EXTREMITIES: No edema. LABORATORY DATA: Sodium 134, potassium 3.7, BUN 28, creatinine 10, glucose 77. White blood cell count 4.5, hematocrit 28, platelet count 128. ASSESSMENT: 1. Hypertension, out of control at time of admission. 2. Question of seizure. PLAN: 1. Discontinue the Cardene drip. 2. From my standpoint, I can transfer out to the stroke floor. 3. Neurology has been consulted to see the patient because of the seizures. It sounds like he probably has chronic seizure condition based on his history. Job ID: [id number]
--- NOTE | 2019-08-27 10:24 | CON ---
DATE OF CONSULTATION: 08/27/2019 Mr. Wen is a patient of mine with a history of chronic headaches as well as chronic neuropathic pain in his leg and end-stage renal disease. He was last seen in the office in May. His Depakote dose was increased in an attempt to reduce his headache frequency. He has been using hydrocodone as his primary pain reliever. He had been on Dilaudid in the past. His witnessed what appeared to be a generalized tonic-clonic seizure. He came in severely hypertensive. He has been put on a Cardene drip. His blood pressure is improved. He is complaining of a left hemicranial headache with nausea. It is fairly typical for his migraines. The [place] has not helped. On exam, he is alert and cooperative. His speech is fluent and clear. His exam is nonfocal. MRI of the brain was unremarkable. I suspect that his severe hypertension may have caused hypertensive encephalopathy with secondary seizure. Structurally, there is no etiology. Continue his Depakote. I will check his blood level and make adjustments as needed. I have ordered the Vanessa protocol. Job ID: [id number]
[2019-08-27] MEDS: cloNIDine 0.1 MG TAB PO PRN (15:58)
--- NOTE | 2019-08-27 16:41 | PRG ---
DATE OF SERVICE: 08/27/2019 SUBJECTIVE: Patient was seen and examined at bedside and overnight events noted. Patient denies any shortness of breath or chest pain or palpitation. No history of nausea or vomiting or diarrhea or fever or chills or cramps. OBJECTIVE: GENERAL: This is an elderly male, in no apparent distress. VITAL SIGNS: Temperature 98.1. Heart rate 81. Respiratory rate 20. Blood pressure 218/87. HEENT: Atraumatic, normocephalic. Oral mucosa is moist NECK: Supple. CARDIOVASCULAR: S1, S2 heard. Rate and rhythm regular. RESPIRATORY: Clear to auscultation. GASTROINTESTINAL: Abdomen is soft. MUSCULOSKELETAL: No tenderness. No edema. DERMATOLOGIC: No skin rash. NEUROLOGIC: Alert and awake and oriented X3. No focal neurologic deficits. Moving all the extremities. PSYCHIATRIC: Mood and affect normal. LABORATORY DATA: Potassium 3.7. BUN is 20 and creatinine is 7.6 ASSESSMENT AND PLAN: 1. End-stage renal disease. Continue on dialysis. 2. Hypertension. Resume home medications. It seems like patient is not able to afford medications for a while. Start back on his medications and monitor. 3. Edema. Remove fluid dialysis. 4. Anemia of chronic disease. 5. Monitor blood pressure closely and we will up titrate medications and remove fluid dialysis as tolerated to help with blood pressure control. We will follow. Limit salt and fluid intake. Job ID: [id number]
--- NOTE | 2019-08-27 23:01 | PDOC.HOSPP ---
- Subjective Encounter Date: 08/27/19 Encounter Time: 10:30 Subjective: Patient seen and examined for HTN crisis. Mentation at baseline. No CP/SOB/ hematuria or AMS. No new complaints. No overnight events - Objective Vital Signs & Weight: Vital Signs (12 hours) Temp Pulse Resp BP BP Pulse Ox 08/27/19 19:53 98.8 F 59 L 16 190/82 H 98 08/27/19 19:02 51 L 168/83 H 08/27/19 16:00 99.1 F 81 16 218/87 H 94 L 08/27/19 15:58 218/87 H 08/27/19 11:20 98.2 F 62 16 157/82 H 96 Weight Weight 145 lb 4.554 oz Most Recent Monitor Data Heart Rate from ECG 76 NIBP 145/76 NIBP BP-Mean 99 Respiration from ECG 18 SpO2 89 I&O: 08/26/19 08/27/19 08/28/19 06:59 06:59 06:59 Intake Total 557 0 Output Total 0 0 Balance 557 0 Result Diagrams: 08/27/19 06:39 08/27/19 06:39 EKG Reviewed by me: Yes (Tele SR) Hospitalist ROS - Review of Systems Respiratory: denies: cough, dry, shortness of breath, hemoptysis, SOB with excertion, pleuritic pain, sputum, wheezing, other Cardiovascular: denies: chest pain, palpitations, orthopnea, paroxysmal noc. dyspnea, edema, light headedness, other - Medication Medications: Active Medications Generic Name Dose Route Start Last Admin Trade Name Freq PRN Reason Stop Dose Admin Hydrocodone Bitart/Acetaminophen 1 tab 08/26/19 22:37 08/27/19 08:13 [place] 10/325 PO 1 tab Q4H PRN Administration Moderate Pain (4-6) Amlodipine Besylate 10 mg 08/27/19 09:00 08/27/19 08:13 Norvasc PO 10 mg DAILY MAGGY Administration Carvedilol 25 mg 08/26/19 17:00 08/27/19 16:01 Coreg PO 25 mg BID-WM MAGGY Administration Clonidine 0.1 mg 08/27/19 09:46 08/27/19 15:58 Catapres PO 0.1 mg Q4H PRN Administration SBP Greater Than 180 Heparin Sodium (Porcine) 5,000 units 08/26/19 15:00 08/27/19 21:33 Heparin SC 5,000 units TID MAGGY Administration Lisinopril 40 mg 08/27/19 09:00 08/27/19 08:12 Zestril PO 40 mg DAILY MAGGY Administration Ondansetron HCl 4 mg 08/27/19 02:37 08/27/19 08:28 Zofran SLOW IVP 4 mg Q4H PRN Administration Nausea/Vomiting Sodium Chloride 10 ml 08/27/19 09:00 08/27/19 08:16 Flush - Normal Saline IVF 10 ml Q12HR MAGGY Administration Valproic Acid 500 mg 08/27/19 09:00 08/27/19 21:33 Depakene PO 500 mg BID MAGGY Administration - Exam General Appearance: NAD Neck: supple, symmetric, no JVD Heart: RRR, no murmur, no gallops, no rubs Respiratory: CTAB, no wheezes, no rales, no ronchi Gastrointestinal: soft, non-tender, non-distended, normal bowel sounds Extremities: no cyanosis, no clubbing, no edema Neurological: no new deficit Psychiatric: normal affect, A&O x 3 Hosp A/P - Plan DVT proph w/SCDs HTN emergency - was out ot HTN meds x 1 week s/p Cardene drip Seizure due to #1 ESRD on dialysis Anemia due to renal disease Tobacco dep Type 2 NM Hyponatremia PLAN: Transfer to Stroke Cont Depakote per Neuro Cont Coreg/Amlodipine/Lisinopril Add Hydralazine Cont PRN meds Dialysis today Counselled.
[2019-08-27] MEDS ORDERED: hydrALAZINE 25 MG TAB PO SCH (23:15)
[2019-08-28] MEDS: hydrALAZINE 20 MG/ML VIAL SLOW IVP PRN ×2 (03:47→06:04)
[2019-08-28 05:05] LABS: Anion Gap 13 mmol/L (10-20); BUN (Urea Nitrogen) 22 mg/dL (8.4-25.7); Calc. Creatinine Clearance 11 mL/min (70-130); Carbon Dioxide 31 mmol/L (22-29); Chloride 98 mmol/L (98-107); Estimated GFR-MDRD 8; Glucose 79 mg/dL (70-105); Potassium 4.3 mmol/L (3.5-5.1); Sodium 138 mmol/L (136-145)
[2019-08-28] MEDS ORDERED: hydrALAZINE 25 MG TAB PO SCH ×3 (09:00→12:15)
[2019-08-28] MEDS: Valproic Acid 250 MG CAP PO SCH ×2 (09:36→20:14)
[2019-08-28] MEDS: Amlodipine 10 MG TAB PO SCH (09:36)
[2019-08-28] MEDS: Carvedilol 25 MG TAB PO SCH ×2 (09:36→16:52)
[2019-08-28] MEDS: Lisinopril 20 MG TAB PO SCH (09:36)
[2019-08-28] MEDS: Heparin 5,000 UNITS/ML VIAL SC SCH ×3 (09:36→20:18)
--- NOTE | 2019-08-28 11:23 | PRG ---
DATE OF SERVICE: 08/28/2019 SUBJECTIVE: Patient was seen and examined at bedside and overnight events noted. Patient denies any shortness of breath or chest pain or palpitation. No history of nausea or vomiting or diarrhea or fever or chills or cramps. OBJECTIVE: GENERAL: This is an elderly male, in no acute distress. VITAL SIGNS: Temperature 98, heart rate 65, respiratory rate 18, blood pressure 194/78. HEENT: Atraumatic, normocephalic. Oral mucosa is moist NECK: Supple. CARDIOVASCULAR: S1, S2 heard. Rate and rhythm regular. RESPIRATORY: Clear to auscultation. GASTROINTESTINAL: Abdomen is soft. MUSCULOSKELETAL: No tenderness. No edema. DERMATOLOGIC: No skin rash. NEUROLOGIC: Alert and awake and oriented X3. No focal neurologic deficits. Moving all the extremities. PSYCHIATRIC: Mood and affect normal. LABORATORY DATA: Potassium 4.3, BUN is 22, creatinine 7.2. ASSESSMENT AND PLAN: 1. End-stage renal disease, continue on dialysis Friday, Friday, Friday. 2. Hypertension. 3. The patient is reporting anxiety and he seems like he was out of his medication at home. 4. Edema, remove fluid dialysis. 5. Anemia of chronic disease. 6. Up titrate medications and remove fluid dialysis and continue dialysis on Friday, Friday, Friday. Job ID: [id number]
[2019-08-28] MEDS: HYDROcodone/Acetaminophen 10/325 mg Tablet PO PRN (12:20)
[2019-08-28] MEDS: cloNIDine 0.1 MG TAB PO PRN (12:25)
[2019-08-28] MEDS: hydrALAZINE 25 MG TAB PO SCH ×2 (14:18→20:15)
--- NOTE | 2019-08-28 14:54 | PDOC.HOSPP ---
- Subjective Encounter Date: 08/28/19 Encounter Time: 07:00 Subjective: Pt seen for followup re: hypertensive urgency. Feels better. Has on and off left-sided headache (for several months). - Objective Vital Signs & Weight: Vital Signs (12 hours) Temp Pulse Resp BP BP Pulse Ox 08/28/19 14:18 58 L 145/67 H 08/28/19 12:25 195/83 H 08/28/19 12:17 60 195/83 H 08/28/19 12:00 98.5 F 60 18 195/83 H 96 08/28/19 09:36 65 194/78 H 08/28/19 09:35 65 194/78 H 08/28/19 08:00 98.8 F 65 18 194/78 H 94 L 08/28/19 06:04 62 208/84 H 08/28/19 05:02 195/85 H 08/28/19 03:47 62 08/28/19 03:36 98.5 F 62 16 206/98 H 97 Weight Weight 145 lb 4.554 oz Most Recent Monitor Data Heart Rate from ECG 76 NIBP 145/76 NIBP BP-Mean 99 Respiration from ECG 18 SpO2 89 I&O: 08/27/19 08/28/19 08/29/19 06:59 06:59 06:59 Intake Total 557 0 Output Total 0 0 Balance 557 0 Result Diagrams: 08/27/19 06:39 08/28/19 04:25 Additional Labs: labs and MARs reviewed by me EKG Reviewed by me: Yes (Tele: NSR) Hospitalist ROS - Review of Systems Respiratory: denies: cough, dry, shortness of breath, hemoptysis, SOB with excertion, pleuritic pain, sputum, wheezing Cardiovascular: denies: chest pain, palpitations, orthopnea, paroxysmal noc. dyspnea, edema, light headedness - Medication Medications: Active Medications Generic Name Dose Route Start Last Admin Trade Name Freq PRN Reason Stop Dose Admin Hydrocodone Bitart/Acetaminophen 1 tab 08/26/19 22:37 08/28/19 12:20 [place] 10/325 PO 1 tab Q4H PRN Administration Moderate Pain (4-6) Amlodipine Besylate 10 mg 08/27/19 09:00 08/28/19 09:36 Norvasc PO 10 mg DAILY MAGGY Administration Carvedilol 25 mg 10/03/19 17:00 08/28/19 09:36 Coreg PO 25 mg BID-WM MAGGY Administration Clonidine 0.1 mg 08/27/19 09:46 08/28/19 12:25 Catapres PO 0.1 mg Q4H PRN Administration SBP Greater Than 180 Heparin Sodium (Porcine) 5,000 units 08/26/19 15:00 08/28/19 14:19 Heparin SC 5,000 units TID MAGGY Administration Hydralazine HCl 10 mg 08/27/19 18:40 08/28/19 06:04 Apresoline SLOW IVP 10 mg Q2H PRN Administration .SBP >180 Hydralazine HCl 75 mg 08/28/19 15:00 08/28/19 14:18 Apresoline PO 75 mg TID MAGGY Administration Lisinopril 40 mg 08/27/19 09:00 08/28/19 09:36 Zestril PO 40 mg DAILY MAGGY Administration Metoclopramide HCl 10 mg 08/27/19 09:42 08/28/19 14:22 Reglan IVP 10 mg Q6H PRN Administration Migraine Headache Ondansetron HCl 4 mg 08/27/19 02:37 08/27/19 08:28 Zofran SLOW IVP 4 mg Q4H PRN Administration Nausea/Vomiting Pantoprazole Sodium 40 mg 08/28/19 09:00 08/28/19 09:37 Protonix PO 40 mg DAILY MAGGY Administration Sodium Chloride 10 ml 08/27/19 09:00 08/28/19 09:37 Flush - Normal Saline IVF 10 ml Q12HR MAGGY Administration Valproic Acid 500 mg 08/27/19 09:00 08/28/19 09:36 Depakene PO 500 mg BID MAGGY Administration - Exam General Appearance: NAD Eye: anicteric sclera ENT: moist mucosa Neck: supple, symmetric Heart: RRR, no rubs Respiratory: CTAB, no wheezes Gastrointestinal: soft, non-tender, normal bowel sounds Musculoskeletal: normal tone, normal strength Psychiatric: normal affect, normal behavior Hosp A/P (1) Hypertensive urgency Code(s): I16.0 - HYPERTENSIVE URGENCY Status: Acute (2) ESRD on dialysis Code(s): N18.6 - END STAGE RENAL DISEASE; Z99.2 - DEPENDENCE ON RENAL DIALYSIS Status: Acute (3) Hyponatremia Code(s): E87.1 - HYPO-OSMOLALITY AND HYPONATREMIA Status: Resolved (4) Seizure Code(s): R56.9 - UNSPECIFIED CONVULSIONS Status: Resolved - Plan out of bed/ambulate Increase hydralazine to 75 mg PO TID, continue PRN clonidine. Dialysis per nephrology service. Pt is on Depakote for seizures (? induced by hypertensive emergency). Pt is on Vanessa protocol for headache.
[2019-08-29] MEDS: Acetaminophen 325 MG TAB PO PRN (01:47)
[2019-08-29] MEDS: cloNIDine 0.1 MG TAB PO PRN (03:55)
[2019-08-29] MEDS: Carvedilol 25 MG TAB PO SCH ×2 (09:13→16:00)
[2019-08-29] MEDS: Amlodipine 10 MG TAB PO SCH (09:13)
[2019-08-29] MEDS: Lisinopril 20 MG TAB PO SCH (09:14)
[2019-08-29] MEDS: Valproic Acid 250 MG CAP PO SCH ×2 (09:14→21:59)
[2019-08-29] MEDS: hydrALAZINE 25 MG TAB PO SCH ×3 (09:14→21:59)
[2019-08-29] MEDS: Heparin 5,000 UNITS/ML VIAL SC SCH ×3 (09:15→21:59)
[2019-08-29] MEDS: HYDROcodone/Acetaminophen 10/325 mg Tablet PO PRN ×2 (09:15→16:05)
[2019-08-29] MEDS ORDERED: cloNIDine 0.1 MG TAB PO SCH (09:30)
--- NOTE | 2019-08-29 12:30 | PRG ---
DATE OF SERVICE: 08/29/2019 SUBJECTIVE: Patient was seen and examined at bedside and overnight events noted. Patient denies any shortness of breath or chest pain or palpitation. No history of nausea or vomiting or diarrhea or fever or chills or cramps. OBJECTIVE: GENERAL: This is a well-built male, in no apparent distress. VITAL SIGNS: Temperature 98.7, heart rate 69, respiratory rate 18, and blood pressure 128/66. HEENT: Atraumatic, normocephalic. Oral mucosa is moist NECK: Supple. CARDIOVASCULAR: S1, S2 heard. Rate and rhythm regular. RESPIRATORY: Clear to auscultation. GASTROINTESTINAL: Abdomen is soft. MUSCULOSKELETAL: No tenderness. No edema. DERMATOLOGIC: No skin rash. NEUROLOGIC: Alert and awake and oriented X3. No focal neurologic deficits. Moving all the extremities. PSYCHIATRIC: Mood and affect normal. LABORATORY DATA: Potassium is 4.3, BUN is 22, and creatinine is 7.2. ASSESSMENT AND PLAN: 1. End-stage renal disease. Continue dialysis Friday, Friday, and Friday. 2. Edema, controlled. 3. Anemia. 4. History of hypertension, better. Make sure the patient gets some medication as before discharge as he was not able to afford his medicine due to some insurance issues. Recommend case management consult and medication assistance before discharge. The patient was also advised to take medicines regularly to prevent this from happening again. Job ID: [id number]
--- NOTE | 2019-08-29 12:53 | PDOC.HOSPP ---
- Subjective Encounter Date: 08/29/19 Encounter Time: 07:00 Subjective: Pt seen for followup re: hypertensive urgency. No complaints today. - Objective Vital Signs & Weight: Vital Signs (12 hours) Temp Pulse Resp BP BP Pulse Ox 08/29/19 11:03 99.0 F 69 20 128/66 95 08/29/19 09:21 188/86 H 08/29/19 09:14 65 188/86 H 08/29/19 09:13 65 188/86 H 08/29/19 07:20 99.1 F 65 20 188/86 H 97 08/29/19 04:00 94 L 08/29/19 03:55 196/77 H 08/29/19 03:46 99.6 F 66 18 196/77 H 94 L Weight Weight 145 lb 4.554 oz Most Recent Monitor Data Heart Rate from ECG 76 NIBP 145/76 NIBP BP-Mean 99 Respiration from ECG 18 SpO2 89 I&O: 08/28/19 08/29/19 08/30/19 06:59 06:59 06:59 Intake Total 0 Output Total 0 Balance 0 Result Diagrams: 08/27/19 06:39 08/28/19 04:25 Additional Labs: Labs and MARs reviewed by la Hospitalist ROS - Review of Systems Cardiovascular: denies: chest pain, palpitations, orthopnea, paroxysmal noc. dyspnea, edema, light headedness Gastrointestinal: denies: nausea, vomiting, abdominal pain, diarrhea, constipation, melena, hematochezia - Medication Medications: Active Medications Generic Name Dose Route Start Last Admin Trade Name Freq PRN Reason Stop Dose Admin Acetaminophen 650 mg 08/26/19 14:25 08/29/19 01:47 Tylenol PO 650 mg Q4H PRN Administration Headache/Fever/Mild Pain (1-3) Hydrocodone Bitart/Acetaminophen 1 tab 08/26/19 22:37 08/29/19 09:15 [place] 10/325 PO 1 tab Q4H PRN Administration Moderate Pain (4-6) Amlodipine Besylate 10 mg 08/27/19 09:00 08/29/19 09:13 Norvasc PO 10 mg DAILY MAGGY Administration Carvedilol 25 mg 08/26/19 17:00 08/29/19 09:13 Coreg PO 25 mg BID-WM MAGGY Administration Clonidine 0.1 mg 08/27/19 09:46 08/29/19 03:55 Catapres PO 0.1 mg Q4H PRN Administration SBP Greater Than 180 Dihydroergotamine Mesylate 0.5 mg 08/27/19 09:41 08/28/19 20:19 D.[address].E. 45 SLOW IVP 0.5 mg Q6H PRN Administration Migraine Headache Heparin Sodium (Porcine) 5,000 units 08/26/19 15:00 08/29/19 09:15 Heparin SC 5,000 units TID MAGGY Administration Hydralazine HCl 10 mg 08/27/19 18:40 08/28/19 06:04 Apresoline SLOW IVP 10 mg Q2H PRN Administration .SBP >180 Hydralazine HCl 75 mg 08/28/19 15:00 08/29/19 09:14 Apresoline PO 75 mg TID MAGGY Administration Lisinopril 40 mg 08/27/19 09:00 08/29/19 09:14 Zestril PO 40 mg DAILY MAGGY Administration Metoclopramide HCl 10 mg 08/27/19 09:42 08/28/19 14:22 Reglan IVP 10 mg Q6H PRN Administration Migraine Headache Ondansetron HCl 4 mg 08/27/19 02:37 08/27/19 08:28 Zofran SLOW IVP 4 mg Q4H PRN Administration Nausea/Vomiting Pantoprazole Sodium 40 mg 08/28/19 09:00 08/29/19 09:14 Protonix PO 40 mg DAILY MAGGY Administration Sodium Chloride 10 ml 08/27/19 09:00 08/29/19 09:10 Flush - Normal Saline IVF 10 ml Q12HR MAGGY Administration Valproic Acid 500 mg 08/27/19 09:00 08/29/19 09:14 Depakene PO 500 mg BID MAGGY Administration - Exam General Appearance: NAD Eye: anicteric sclera ENT: moist mucosa Neck: supple Heart: RRR, no murmur Respiratory: CTAB, no wheezes Gastrointestinal: soft, non-tender Extremities: no clubbing Skin - other findings: multiple excoriations Musculoskeletal: normal strength Psychiatric: normal affect, normal behavior Hosp A/P (1) Hypertensive urgency Code(s): I16.0 - HYPERTENSIVE URGENCY Status: Acute (2) ESRD on dialysis Code(s): N18.6 - END STAGE RENAL DISEASE; Z99.2 - DEPENDENCE ON RENAL DIALYSIS Status: Acute (3) Hyponatremia Code(s): E87.1 - HYPO-OSMOLALITY AND HYPONATREMIA Status: Resolved (4) Seizure Code(s): R56.9 - UNSPECIFIED CONVULSIONS Status: Resolved - Plan out of bed/ambulate Increase hydralazine to 75 mg PO TID, change clonidine to scheduled. Nephrology following. Continue Depakote. Continue Vanessa protocol for headache.
[2019-08-29] MEDS: cloNIDine 0.1 MG TAB PO SCH ×2 (16:00→22:00)
[2019-08-30 08:01] LABS: #Eosinphils 0.3 thou/uL (0.0-0.7); #Lymphocytes 0.7 thou/uL (1.20-3.40); #Monocytes 0.3 thou/uL (0.11-0.59); #Neutrophils 2.6 thou/uL (1.40-6.50); %Basophils 0.6 % (0.0-1.0); %Eosinophils 8.3 % (0.0-10.0); %Lymphocytes 16.9 % (21.0-51.0); %Monocytes 7.6 % (0.0-10.0); %Neutrophils 66.7 % (42.0-75.0); Hemoglobin 8.3 g/dL (14.0-18.0); Mean Corpuscular HGB CONC 34.3 g/dL (32.0-36.0); Mean Platelet Volume 8.8 fL (7.4-10.4); Platelet Count 105 thou/uL (130-400); RBC Distribution Width 15.5 % (11.5-14.5); White Blood Cell (WBC) Count 3.9 thou/uL (4.8-10.8)
[2019-08-30 08:05] LABS: Albumin 3.4 g/dL (3.5-5.0); Anion Gap 18 mmol/L (10-20); BUN (Urea Nitrogen) 33 mg/dL (8.4-25.7); BUN/Creatinine Ratio 2.64; Calc. Creatinine Clearance 7 mL/min (70-130); Calcium 8.8 mg/dL (7.8-10.44); Carbon Dioxide 25 mmol/L (22-29); Chloride 94 mmol/L (98-107); Estimated GFR-MDRD 4; Glucose 91 mg/dL (70-105); Phosphorus 5.7 mg/dL (2.3-4.7); Potassium 4.2 mmol/L (3.5-5.1); Sodium 133 mmol/L (136-145)
[2019-08-30] MEDS: cloNIDine 0.1 MG TAB PO SCH ×2 (09:25→15:30)
[2019-08-30] MEDS: hydrALAZINE 25 MG TAB PO SCH ×2 (09:25→15:30)
[2019-08-30] MEDS: Heparin 5,000 UNITS/ML VIAL SC SCH ×2 (09:53→15:18)
[2019-08-30] MEDS: Amlodipine 10 MG TAB PO SCH (11:59)
[2019-08-30] MEDS: Lisinopril 20 MG TAB PO SCH (12:00)
[2019-08-30] MEDS: Acetaminophen 325 MG TAB PO PRN (12:00)
[2019-08-30] MEDS: Carvedilol 25 MG TAB PO SCH (12:00)
[2019-08-30] MEDS: Valproic Acid 250 MG CAP PO SCH (12:19)
--- NOTE | 2019-08-30 13:41 | PRG ---
DATE OF SERVICE: 08/30/2019 SUBJECTIVE: This is a 53-year-old gentleman being seen for end-stage kidney disease. The patient denied nausea, vomiting or chest pain. OBJECTIVE: See above. Patient is awake, alert. VITAL SIGNS: , breathing 16, blood pressure was 118/79. GENERAL APPEARANCE AND MENTAL STATUS: Fair. HEAD/NECK: Normocephalic. Atraumatic. EYES: EOMI. No deformity. EARS: Clear. No ulcers. NOSE: Intact. No lesions. MOUTH: Clear. No discharge. THROAT: Clear. No exudate. LUNGS: Clear. No crackles. CARDIAC: S1, S2. No rub. ABDOMEN: Benign. Bowel sounds positive. GENITALIA/RECTUM: Tse absent. BACK/EXTREMITIES: Edema 0+. NEUROLOGICAL: Alert and motor intact. SKIN: LYMPHATICS: LABORATORY DATA: Reviewed. ASSESSMENT AND PLAN: 1. Stage 6 chronic kidney disease, plan dialysis. 2. Hypertension, stable. 3. Anemia, stable. Medication based on GFR appropriate. Job ID: [id number]
[2019-08-30 15:49] VITALS: BP 129/71
[2019-08-30 16:03] VITALS: TEMP 98.2
--- NOTE | 2019-08-31 00:59 | DIS ---
DATE OF ADMISSION: 08/26/2019 DATE OF DISCHARGE: 08/30/2019 PRIMARY CARE PROVIDER: Popeye Marquez MD DISCHARGE DIAGNOSES: 1. Hypertensive emergency. 2. Seizure, likely secondary to hypertensive encephalopathy. 3. Migraine headache. 4. Thrombocytopenia. 5. Hyponatremia. CONSULTATIONS DURING THIS HOSPITALIZATION: 1. Nephrology, Dr. Marquez. 2. Pulmonary and Critical Care Medicine, Dr. Garcia. 3. Neurology, Dr. Shankar. DISCHARGE MEDICATIONS: 1. Divalproex 500 mg 2 times a day. 2. Norvasc 10 mg daily. 3. Coreg 25 mg 2 times a day. 4. Clonidine 0.1 mg 3 times a day. 5. Hydralazine 50 mg 4 times a day. 6. Lisinopril 40 mg daily. CONDITION OF PATIENT ON THE DAY OF DISCHARGE: Stable. I assessed Mr. Wen on the day of discharge. He denies any chest pain or shortness of breath. Vital signs are stable. S1 and S2 are heard, regular. Lungs are clear to auscultation bilaterally. HOSPITAL COURSE: Mr. Wen is a pleasant 53-year-old gentleman, who was admitted to [facility] for hypertensive emergency on August 26, 2019. Please refer to Dr. Jenkins's history and physical note dated August 26, 2019, for further details. He was admitted to critical care unit. He was treated with Cardene drip. His hypertensive emergency occurred during the context of medication noncompliance. He was started on oral medications. He was seen by Neurology Service for seizure. It was advised that he continue his Depakote. He was also started on Vanessa protocol for migraine headache. His blood pressure is improved. He received hemodialysis during this hospitalization. He has been advised to be compliant with his medications. He has been advised to check his blood pressure and heart rate 3 times a day and show the readings to his primary care provider. FOLLOWUP APPOINTMENTS: The patient is advised to follow up with primary care provider in 3 to 5 days' time. Many thanks for allowing me to participate in your patient's care. Please feel free to contact me with any questions or concerns. On the day of discharge, he has sodium 133, potassium 4.2, blood urea nitrogen 33, and creatinine 12.52. White count is 3900, hemoglobin 8.3, and platelet count 105,000. DISCHARGE DESTINATION: Home. TIME SPENT: Total amount of time spent coordinating this discharge: 33 minutes. Job ID: [id number]
--- NOTE | 2019-09-01 06:44 | PQF ---
CHIQUIS BURGESS DAVID [id number] [facility] [place]-203 [id number] CLINICAL DOCUMENTATION CLARIFICATION FORM: POST DISCHARGE Addendum to original discharge summary date: ____ Late entry note date: __ DATE: 09-01-2019 ATTN:Nile Sahni Please exercise your independent, professional judgment in responding to the clarification form. Clinical indicators are provided on the bottom of this form for your review Can you please specify whether Type II IL is ruled in or ruled out during this encounter? Please check appropriate box(s) to clarify if the following diagnosis has been ruled in or ruled out: Type II IL [ ] Ruled in diagnosis [ ] Continue to treat [ ] Resolved [ x ] Ruled out diagnosis [ ] Cannot rule out diagnosis [ ] Other diagnosis please specify: [ ] Unable to determine For continuity of documentation, please document condition throughout progress notes and discharge summary. Thank You. CLINICAL INDICATORS: HP 10/ pg1 Dr. Jenkins [facility] found the patient confused, complaining of a headache HP [address] Jenkins BP notes as high 221/123, and 243/108 HP 10/ pg3 Dr. Jenkins New onset seizure likely due to hypertensive encephalopathy HP / pg3 Dr. Jenkins Indeterminate troponin PN 08/[address] Godfrey Type 2 IL DS 08/[address] Watkins Hypertensive emergency Laboratory Troponin: 0.035H, 0.029H, 0.010 RISK FACTOR: HP Dr. Jenkins -HTN HP Dr. Jenkins- ESRD HP Dr. Jenkins- Hypertensive Emergency TREATMENTS: HP Dr. Jenkins- Keep on telemetry ICU PN 08/[address] Godfrey-Dialysis MAR 10- Hydralazine 20 mg MAR 10- Nicardipine 20 mg IV (This form is maintained as a part of the permanent medical record) 2014 [employer]. All Rights Reserved [email or web address] [not provided] MTDD
== END 2019-08-30 16:05 | disposition home or self-care (01) | DRG 304 ==
LOC: ERS 10:35 → CCU 19:17 → 2SE 08-27 11:15
PROVIDERS: ADMIT Internal Medicine; ATTEND Internal Medicine
PROC: 5A1D70Z Performance of Urinary Filtration, Intermittent, Less than 6 Hours Per Day (ICD-10-PCS; principal; 2019-08-27)
PROC: 3E02340 Introduction of Influenza Vaccine into Muscle, Percutaneous Approach (ICD-10-PCS; 2019-08-27)
DX: I16.1 Hypertensive emergency (principal); N18.6 End stage renal disease; I67.4 Hypertensive encephalopathy; E87.1 Hypo-osmolality and hyponatremia; I12.0 Hypertensive chronic kidney disease with stage 5 chronic kidney disease or end stage renal disease; G62.9 Polyneuropathy, unspecified; F17.210 Nicotine dependence, cigarettes, uncomplicated; D63.1 Anemia in chronic kidney disease; K21.9 Gastro-esophageal reflux disease without esophagitis; D69.6 Thrombocytopenia, unspecified; G43.909 Migraine, unspecified, not intractable, without status migrainosus; F41.9 Anxiety disorder, unspecified; Z91.14 Patient's other noncompliance with medication regimen; Z88.1 Allergy status to other antibiotic agents; Z88.8 Allergy status to other drugs, medicaments and biological substances; Z91.040 Latex allergy status; Z91.018 Allergy to other foods; Z79.899 Other long term (current) drug therapy; Z99.2 Dependence on renal dialysis; Z23 Encounter for immunization
CPT/HCPCS: 36415; 36416; 70450; 70496; 70498; 70551; 72125; 80048; 80053; 80069; 80164; 82140; 82550; 83690; 84146; 84443; 84484; 85025; 85610; 85730; 90935; 93005; 96365; 96366; 96375; C9113; G0257; J0360; J1110; J1644; J2060; J2405; J2765; J7050; Q9966

== ENCOUNTER 2020-03-20 01:03 | Emergency (ER) | payer MEDICARE ==
[2020-03-20] MEDS ORDERED: cloNIDine 0.1 MG TAB ONE (01:21)
[2020-03-20] MEDS ORDERED: Metoclopramide HCl 10 MG/2 ML VIAL ONE (01:35)
[2020-03-20] MEDS ORDERED: diphenhydrAMINE 50 MG/ML VIAL ONE (01:35)
[2020-03-20 01:38] LABS: #Basophils 0.1 thou/uL (0.0-0.2); #Eosinphils 0.3 thou/uL (0.0-0.7); #Lymphocytes 1.2 thou/uL (1.20-3.40); #Monocytes 0.5 thou/uL (0.11-0.59); #Neutrophils 5.6 thou/uL (1.40-6.50); %Basophils 1.3 % (0.0-1.0); %Eosinophils 3.9 % (0.0-10.0); %Lymphocytes 15.5 % (21.0-51.0); %Monocytes 5.9 % (0.0-10.0); %Neutrophils 73.4 % (42.0-75.0); Hemoglobin 13.7 g/dL (14.0-18.0); Mean Corpuscular HGB CONC 33.3 g/dL (32.0-36.0); Mean Corpuscular Hemoglobin 31.8 pg (27.0-31.0); Mean Corpuscular Volume 95.7 fL (78.0-98.0); Mean Platelet Volume 8.4 fL (7.4-10.4); Platelet Count 214 thou/uL (130-400); RBC Distribution Width 14.1 % (11.5-14.5); White Blood Cell (WBC) Count 7.7 thou/uL (4.8-10.8)
[2020-03-20 01:57] LABS: ALT (SGPT) Less than 7 U/L (8-55); AST (SGOT) 10 U/L (5-34); Albumin 4.3 g/dL (3.5-5.0); Alkaline Phosphatase 57 U/L (40-110); Anion Gap 28 mmol/L (10-20); BUN (Urea Nitrogen) 46 mg/dL (8.4-25.7); Bilirubin, Total 0.6 mg/dL (0.2-1.2); Calc. Creatinine Clearance 0 mL/min (70-130); Calcium 10.1 mg/dL (7.8-10.44); Carbon Dioxide 28 mmol/L (22-29); Chloride 87 mmol/L (98-107); Estimated GFR-MDRD 4; Globulin 2.5 g/dL (2.4-3.5); Glucose 101 mg/dL (70-105); Potassium 4.6 mmol/L (3.5-5.1); Protein, Total 6.8 g/dL (6.0-8.3); Sodium 138 mmol/L (136-145)
--- NOTE | 2020-03-20 09:44 | RAD ---
PORTABLE CHEST 1 VIEW: DATE: 03/20/2020. TIME: 1:49 AM. HISTORY: Headache, nausea, vomiting, hypertension, missed dialysis appointment. FINDINGS: Comparison is made with the exam of 04/16/2019. Left-sided hemodialysis catheter noted on the previous exam has been removed in the interim. A right -sided vascular stent is again seen. The heart size is normal. The lungs are expanded without lobar consolidation, pneumothoraces, or pleural effusions. There is no evidence of sierra pulmonary edema. IMPRESSION: No acute process. POS: [facility]
--- NOTE | 2020-03-22 14:56 | EKG ---
Test Reason : Blood Pressure : / mmHG Vent. Rate : 072 BPM Atrial Rate : 072 BPM P-R Int : 146 ms QRS Dur : 078 ms QT Int : 434 ms P-R-T Axes : 104 047 064 degrees QTc Int : 475 ms Normal sinus rhythm No STEMI Normal ECG Confirmed by MIGDALIA DAVIS M.D. ([id number]), pictures editor ETIENNE SORTO ([id number]) on 03/22/2020 2:56:02 PM Referred By: Confirmed By:MIGDALIA DAVIS M.D.
== END 2020-03-20 03:25 | disposition home or self-care (01) ==
LOC: ERS 01:03
DX: G44.009 Cluster headache syndrome, unspecified, not intractable (principal); I12.0 Hypertensive chronic kidney disease with stage 5 chronic kidney disease or end stage renal disease; N18.6 End stage renal disease; G62.9 Polyneuropathy, unspecified; F17.210 Nicotine dependence, cigarettes, uncomplicated; Z79.899 Other long term (current) drug therapy; Z79.891 Long term (current) use of opiate analgesic
CPT/HCPCS: 71045; 80053; 83880; 84484; 85025; 93005; 94760; J2765; 36415; 96365; 96375; J1200

== ENCOUNTER 2021-02-23 10:09 | Inpatient (IN) | payer MEDICARE ==
[2021-02-23] MEDS ORDERED: Morphine 4 MG/ML VIAL ONE (10:32)
[2021-02-23 10:37] LABS: #Basophils 0.1 thou/uL (0.0-0.2); #Eosinphils 0.1 thou/uL (0.0-0.7); #Lymphocytes 0.9 thou/uL (1.20-3.40); #Monocytes 0.3 thou/uL (0.11-0.59); #Neutrophils 2.7 thou/uL (1.40-6.50); %Basophils 1.8 % (0.0-1.0); %Lymphocytes 21.1 % (21.0-51.0); %Monocytes 8.4 % (0.0-10.0); %Neutrophils 65.8 % (42.0-75.0); Hemoglobin 11.2 g/dL (14.0-18.0); Mean Corpuscular HGB CONC 34.7 g/dL (32.0-36.0); Mean Corpuscular Hemoglobin 34.8 pg (27.0-31.0); Mean Platelet Volume 8.3 fL (7.4-10.4); Platelet Count 135 thou/uL (130-400); RBC Distribution Width 15.9 % (11.5-14.5); Red Blood Cell (RBC) Count 3.21 mill/uL (4.70-6.10); White Blood Cell (WBC) Count 4.1 thou/uL (4.8-10.8)
[2021-02-23] MEDS ORDERED: Ondansetron ODT 4 MG TAB ONE (10:50)
[2021-02-23 11:00] LABS: ALT (SGPT) Less than 7 U/L (8-55); AST (SGOT) 16 U/L (5-34); Albumin 4.1 g/dL (3.5-5.0); Alkaline Phosphatase 67 U/L (40-110); BUN (Urea Nitrogen) 17 mg/dL (8.4-25.7); Bilirubin, Total 0.6 mg/dL (0.2-1.2); Calc. Creatinine Clearance 0 mL/min (70-130); Calcium 10.1 mg/dL (7.8-10.44); Glucose 79 mg/dL (70-105); Protein, Total 7.1 g/dL (6.0-8.3)
[2021-02-23] MEDS ORDERED: Fentanyl 100 MCG/2 ML VIAL ONE (11:07)
[2021-02-23] MEDS ORDERED: Lorazepam 2 MG/ML VIAL ONE (11:07)
[2021-02-23 11:09] LABS: Anion Gap 18 mmol/L (10-20); Carbon Dioxide 34 mmol/L (22-29); Chloride 89 mmol/L (98-107); Sodium 137 mmol/L (136-145)
[2021-02-23 12:14] LABS: CKMB 1.1 ng/mL (0-6.6)
[2021-02-23] MEDS ORDERED: Ondansetron ODT 4 MG TAB PO PRN (14:07)
[2021-02-23] MEDS ORDERED: Acetaminophen 325 MG TAB PO PRN (14:07)
[2021-02-23] MEDS ORDERED: Ondansetron PF 4 MG/2 ML Vial IVP PRN (14:07)
[2021-02-23] MEDS ORDERED: HYDROcodone/Acetaminophen 10/325 mg Tablet ONE (14:11)
[2021-02-23] MEDS ORDERED: Heparin 5,000 UNITS/ML VIAL SC SCH (15:00)
[2021-02-23 15:19] LABS: Troponin I 0.199 ng/mL (< 0.028)
[2021-02-23 16:01] VITALS: BMI 21.2
[2021-02-23] MEDS: cloNIDine 0.1 MG TAB PO SCH ×2 (16:33→20:13)
[2021-02-23] MEDS: HYDROcodone/Acetaminophen 10/325 mg Tablet PO SCH ×2 (16:33→20:12)
[2021-02-23] MEDS: Sevelamer Carbonate 800 MG TAB PO SCH (16:33)
[2021-02-23 18:10] LABS: Troponin I 0.803 ng/mL (< 0.028)
[2021-02-23] MEDS ORDERED: Heparin 10,000 UNITS/ 10 ML VIAL SLOW IVP SCH (19:00)
[2021-02-23] MEDS ORDERED: Heparin 25,000 units/D5W 500 ML IVPB SCH (19:00)
[2021-02-23 19:22] LABS: Hemoglobin 9.9 g/dL (14.0-18.0); Platelet Count 108 thou/uL (130-400)
[2021-02-23] MEDS: hydrALAZINE 25 MG TAB PO SCH (20:14)
[2021-02-23] MEDS: OXcarbazepine 300 MG TAB PO SCH (20:14)
[2021-02-23] MEDS: Carvedilol 25 MG TAB PO SCH (20:14)
[2021-02-23 21:08] LABS: SARS-CoV-2 PCR by NAA Not Detected (NotDetected)
[2021-02-23] MEDS: Oxymetazoline HCl 0.05% (30 ML BOT) NS PRN (23:32)
[2021-02-24] MEDS: HYDROcodone/Acetaminophen 10/325 mg Tablet PO SCH ×4 (02:03→20:40)
[2021-02-24 02:16] LABS: #Basophils 0.1 thou/uL (0.0-0.2); #Eosinphils 0.1 thou/uL (0.0-0.7); #Lymphocytes 1.1 thou/uL (1.20-3.40); #Monocytes 0.3 thou/uL (0.11-0.59); #Neutrophils 2.3 thou/uL (1.40-6.50); %Basophils 1.5 % (0.0-1.0); %Eosinophils 2.6 % (0.0-10.0); %Lymphocytes 28.8 % (21.0-51.0); %Monocytes 8.3 % (0.0-10.0); %Neutrophils 58.7 % (42.0-75.0); Hemoglobin 10.2 g/dL (14.0-18.0); Mean Corpuscular HGB CONC 34.8 g/dL (32.0-36.0); Mean Corpuscular Hemoglobin 34.9 pg (27.0-31.0); Mean Platelet Volume 8.2 fL (7.4-10.4); Platelet Count 113 thou/uL (130-400); RBC Distribution Width 16.2 % (11.5-14.5); Red Blood Cell (RBC) Count 2.92 mill/uL (4.70-6.10)
[2021-02-24 02:39] LABS: Anion Gap 20 mmol/L (10-20); BUN (Urea Nitrogen) 23 mg/dL (8.4-25.7); Calc. Creatinine Clearance 9 mL/min (70-130); Calcium 9.5 mg/dL (7.8-10.44); Carbon Dioxide 32 mmol/L (22-29); Chloride 88 mmol/L (98-107); Glucose 75 mg/dL (70-105); Potassium 4.2 mmol/L (3.5-5.1); Sodium 136 mmol/L (136-145)
[2021-02-24] MEDS: Oxymetazoline HCl 0.05% (30 ML BOT) NS PRN ×2 (06:05→14:20)
[2021-02-24] MEDS: Carvedilol 25 MG TAB PO SCH ×2 (08:23→20:42)
[2021-02-24] MEDS: cloNIDine 0.1 MG TAB PO SCH ×3 (08:23→20:41)
[2021-02-24] MEDS: Sevelamer Carbonate 800 MG TAB PO SCH ×4 (08:23→15:51)
[2021-02-24] MEDS: hydrALAZINE 25 MG TAB PO SCH ×2 (08:30→20:39)
[2021-02-24] MEDS: OXcarbazepine 300 MG TAB PO SCH ×2 (10:35→20:42)
[2021-02-24 11:58] LABS: Troponin I 20.466 ng/mL (< 0.028)
[2021-02-24 13:07] LABS: Hemoglobin 11.2 g/dL (14.0-18.0); Platelet Count 130 thou/uL (130-400)
[2021-02-24 13:49] LABS: CKMB 11.5 ng/mL (0-6.6)
[2021-02-24] MEDS: Heparin 10,000 UNITS/ 10 ML VIAL SLOW IVP SCH (14:11)
[2021-02-24] MEDS: Heparin 25,000 units/D5W 500 ML IVPB SCH (14:12)
[2021-02-25] MEDS: Heparin 10,000 UNITS/ 10 ML VIAL SLOW IVP SCH (02:09)
[2021-02-25] MEDS: HYDROcodone/Acetaminophen 10/325 mg Tablet PO SCH ×4 (02:55→20:39)
[2021-02-25 04:34] LABS: Hemoglobin 9.1 g/dL (14.0-18.0); Platelet Count 114 thou/uL (130-400)
[2021-02-25] MEDS: Sevelamer Carbonate 800 MG TAB PO SCH ×3 (08:36→17:00)
[2021-02-25] MEDS: Amlodipine 10 MG TAB PO SCH (08:37)
[2021-02-25] MEDS: OXcarbazepine 300 MG TAB PO SCH ×2 (08:38→20:39)
[2021-02-25] MEDS: cloNIDine 0.1 MG TAB PO SCH ×3 (08:38→20:39)
[2021-02-25] MEDS: hydrALAZINE 25 MG TAB PO SCH ×2 (08:38→20:39)
[2021-02-25] MEDS: Carvedilol 25 MG TAB PO SCH ×2 (08:38→20:39)
[2021-02-25] MEDS: Heparin 25,000 units/D5W 500 ML IVPB SCH (08:39)
[2021-02-25] MEDS ORDERED: Communication Order-Pharmacy FS SCH (13:30)
[2021-02-25 14:46] LABS: Troponin I 9.427 ng/mL (< 0.028)
[2021-02-25 15:41] LABS: HBSAg Index 0.19 S/CO (0-0.99); Hep B Surf Ag Non-Reactive S/CO (NonReactive)
[2021-02-26] MEDS: HYDROcodone/Acetaminophen 10/325 mg Tablet PO SCH ×4 (03:07→20:14)
[2021-02-26] MEDS: hydrALAZINE 25 MG TAB PO SCH ×3 (05:15→20:14)
[2021-02-26] MEDS: cloNIDine 0.1 MG TAB PO SCH (05:15)
[2021-02-26] MEDS: Amlodipine 10 MG TAB PO SCH (05:16)
[2021-02-26] MEDS: Carvedilol 25 MG TAB PO SCH ×2 (05:16→20:14)
[2021-02-26] MEDS: OXcarbazepine 300 MG TAB PO SCH ×2 (05:17→20:14)
[2021-02-26] MEDS: Sevelamer Carbonate 800 MG TAB PO SCH ×3 (07:41→18:19)
[2021-02-26] MEDS ORDERED: Aspirin Chewable 81 MG TAB PO STA (08:02)
[2021-02-26] MEDS ORDERED: Aspirin Chewable 81 MG TAB PO SCH (08:15)
[2021-02-26] MEDS ORDERED: Communication Order-Pharmacy FS SCH (08:15)
[2021-02-26] MEDS: Sodium Chloride 0.9% 1,000 ML IV SCH (08:21)
[2021-02-26] MEDS ORDERED: Lidocaine 1% (PF) 30 ML VIAL ONE (08:31)
[2021-02-26 08:59] LABS: Hemoglobin 9.4 g/dL (14.0-18.0); Platelet Count 101 thou/uL (130-400)
[2021-02-26] MEDS ORDERED: Amlodipine 10 MG TAB PO SCH (09:00)
[2021-02-26 09:15] LABS: Anion Gap 26 mmol/L (10-20); BUN (Urea Nitrogen) 46 mg/dL (8.4-25.7); Calc. Creatinine Clearance 6 mL/min (70-130); Calcium 8.9 mg/dL (7.8-10.44); Carbon Dioxide 27 mmol/L (22-29); Chloride 83 mmol/L (98-107); Glucose 82 mg/dL (70-105); Potassium 4.4 mmol/L (3.5-5.1); Sodium 132 mmol/L (136-145)
[2021-02-26] MEDS ORDERED: Fentanyl 100 MCG/2 ML VIAL ONE (09:19)
[2021-02-26] MEDS ORDERED: Midazolam HCl 2 mg/2 ml Vial ONE (09:19)
[2021-02-26] MEDS ORDERED: Heparin 10,000 UNITS/ 10 ML VIAL ONE (09:57)
[2021-02-26] MEDS ORDERED: Nitroglycerin 0.4 MG TAB (25 Tab Bottle) SL PRN (10:06)
[2021-02-26] MEDS ORDERED: Sodium Chloride 0.9% 200 ML IV PRN (10:06)
[2021-02-26] MEDS ORDERED: Acetaminophen/Codeine 30-300mg Tablet PO PRN ×2 (10:06)
[2021-02-26] MEDS ORDERED: Iopamidol 370 76% 100 ML VIAL ONE (13:19)
[2021-02-27] MEDS: HYDROcodone/Acetaminophen 10/325 mg Tablet PO SCH (03:28)
[2021-02-27 04:55] LABS: Hemoglobin 9.5 g/dL (14.0-18.0); Platelet Count 106 thou/uL (130-400)
[2021-02-27 05:04] LABS: Anion Gap 19 mmol/L (10-20); BUN (Urea Nitrogen) 33 mg/dL (8.4-25.7); Calc. Creatinine Clearance 8 mL/min (70-130); Calcium 8.7 mg/dL (7.8-10.44); Carbon Dioxide 27 mmol/L (22-29); Chloride 96 mmol/L (98-107); Glucose 79 mg/dL (70-105); Potassium 4.8 mmol/L (3.5-5.1); Sodium 137 mmol/L (136-145)
[2021-02-27] MEDS: Carvedilol 25 MG TAB PO SCH (05:33)
[2021-02-27] MEDS: Sodium Chloride 0.9% 1,000 ML IV SCH (05:34)
[2021-02-27] MEDS: Sevelamer Carbonate 800 MG TAB PO SCH (08:00)
[2021-02-27] MEDS ORDERED: [UNRECOGNIZED DRUG - REMARK] FS SCH (08:45)
[2021-02-27] MEDS ORDERED: Aspirin 81 mg Enteric Coated Tablet PO SCH (09:00)
[2021-02-27] MEDS ORDERED: Albumin 5% 500 ML ONE (09:27)
[2021-02-27] MEDS ORDERED: Heparin 10,000 UNITS/1 ML VIAL 30,000 UNITS in Sodium Chloride 0.9% 1,000 ML FS SCH (09:45)
[2021-02-27] MEDS ORDERED: Fentanyl 250 MCG/5 ML VIAL ONE (09:58)
[2021-02-27] MEDS ORDERED: Midazolam HCl 5 mg/5 ml Vial ONE (09:59)
[2021-02-27] MEDS ORDERED: Midazolam HCl 2 mg/2 ml Vial ONE ×2 (09:59→10:11)
[2021-02-27] MEDS ORDERED: Vecuronium 10 MG VIAL ONE (10:23)
[2021-02-27] MEDS ORDERED: Thrombin 5000 UNITS/5 ML VIAL ONE (10:23)
[2021-02-27] MEDS ORDERED: Heparin 30,000 units/30 ml VIAL ONE (10:23)
[2021-02-27] MEDS ORDERED: Lidocaine 2% PF 100 mg/5 ml Syringe ONE (10:23)
[2021-02-27] MEDS ORDERED: Aminocaproic Acid 5 GM/20 ML VIAL ONE (10:23)
[2021-02-27] MEDS ORDERED: Potassium Chloride 60 MEQ/30 ML VIAL ONE (10:23)
[2021-02-27] MEDS ORDERED: Sodium Bicarb 50 MEQ/50 ML Abboject 8.4% SYRINGE ONE (10:23)
[2021-02-27] MEDS ORDERED: PROPOFOL 200 MG/20 ML VIAL ONE (10:23)
[2021-02-27] MEDS ORDERED: Dextrose 50% Abboject 50 ML SYRINGE ONE (10:23)
[2021-02-27] MEDS ORDERED: Papaverine 60 MG/2 ML VIAL ONE (10:23)
[2021-02-27] MEDS ORDERED: Protamine Sulfate 250 MG/25 ML VIAL ONE (10:23)
[2021-02-27] MEDS ORDERED: Heparin 5,000 UNITS/ML VIAL ONE (10:23)
[2021-02-27] MEDS ORDERED: Calcium Chloride 1 GM/10 ML Abboject SYRINGE ONE (10:23)
[2021-02-27] MEDS ORDERED: Magnesium Sulfate 1 GM/2 ML VIAL ONE (10:23)
[2021-02-27] MEDS ORDERED: Bisacodyl 10 MG SUPP PR PRN (14:28)
[2021-02-27] MEDS ORDERED: Hetastarch 6% 500 ML 500 ML IVPB PRN (14:28)
[2021-02-27] MEDS ORDERED: Morphine 2 MG/ML VIAL SLOW IVP PRN (14:28)
[2021-02-27] MEDS ORDERED: Norepinephrine 8 MG/0.9% NS 250 ML IVPB PRN (14:28)
[2021-02-27] MEDS ORDERED: HYDROcodone/Acetaminophen 5/325 mg Tablet PO PRN (14:28)
[2021-02-27] MEDS ORDERED: Mag-Al 1200 mg/1200 mg/30 ML UDCUP PO PRN (14:28)
[2021-02-27] MEDS ORDERED: Acetaminophen 325 MG TAB PO PRN (14:28)
[2021-02-27] MEDS ORDERED: Post-Op Insulin Drip Protocol IVPB ONE (14:28)
[2021-02-27] MEDS ORDERED: Fentanyl 100 MCG/2 ML VIAL SLOW IVP PRN (14:28)
[2021-02-27] MEDS ORDERED: Promethazine HCl 25 MG/ML VIAL IM PRN (14:28)
[2021-02-27] MEDS ORDERED: niCARdipine 25 MG in Sodium Chloride 0.9% 250 ML 240 ML IVPB PRN (14:28)
[2021-02-27] MEDS ORDERED: DOPamine 400 MG/D5W 250 ML 250 ML IVPB PRN (14:28)
[2021-02-27] MEDS ORDERED: Guaifenesin DM 100-10/5 ML UDCUP PO PRN (14:28)
[2021-02-27] MEDS ORDERED: Sodium Chloride 0.9% 1,000 ML IV SCH (14:30)
[2021-02-27] MEDS ORDERED: HUMULIN R 100 UNITS in Sodium Chloride 0.9% 100 ML IVPB SCH (14:45)
[2021-02-27] MEDS ORDERED: Insulin Regular 300 UNITS/3 ML VIAL SC PRN (14:45)
[2021-02-27] MEDS ORDERED: Dextrose 5% in Water 1,000 ML IV PRN (14:45)
[2021-02-27] MEDS ORDERED: Dextrose 50% Abboject 50 ML SYRINGE SLOW IVP PRN (14:45)
[2021-02-27 14:47] LABS: Actual Bicarbonate (HCO3a) 22.8 mEq/L (22-28); Base Excess (BEa) -1.5 mEq/L (-2.0 to +3.0); CO2 Tension 36.5 mmHg (35.0-45.0); Calcium, Ionized (arterial) 1.05 mmol/L (1.12-1.30); Carboxyhemoglobin (COHb) 0.3 gm% (0.0-3.0); Hemoglobin (Hb) 10.5 g/dL (14.0-18.0); O2 Tension (PaO2), arterial 282.8 mmHg (80.0-100.0); Potassium - ABG Lab 4.85 mmol/L (3.70-5.30); pH, Arterial 7.41 (7.35-7.45)
[2021-02-27 14:49] LABS: ALV-art Gradient 99.375 mmHg (0-20); Puncture Site Arterial Line
[2021-02-27] MEDS: Fentanyl 100 MCG/2 ML VIAL SLOW IVP PRN ×7 (14:50→22:36)
[2021-02-27] MEDS: Nitroglycerin 50 MG/250 ML BOT 250 ML IVPB PRN (15:00)
[2021-02-27 15:11] LABS: #Eosinphils 0.2 thou/uL (0.0-0.7); #Lymphocytes 0.7 thou/uL (1.20-3.40); #Monocytes 0.4 thou/uL (0.11-0.59); #Neutrophils 5.6 thou/uL (1.40-6.50); %Basophils 0.7 % (0.0-1.0); %Eosinophils 3.1 % (0.0-10.0); %Lymphocytes 10.6 % (21.0-51.0); %Monocytes 5.1 % (0.0-10.0); %Neutrophils 80.6 % (42.0-75.0); Hemoglobin 10.1 g/dL (14.0-18.0); Mean Corpuscular HGB CONC 34.4 g/dL (32.0-36.0); Mean Corpuscular Hemoglobin 33.3 pg (27.0-31.0); Mean Corpuscular Volume 96.8 fL (78.0-98.0); Mean Platelet Volume 8.7 fL (7.4-10.4); Platelet Count 104 thou/uL (130-400); Red Blood Cell (RBC) Count 3.04 mill/uL (4.70-6.10); White Blood Cell (WBC) Count 6.9 thou/uL (4.8-10.8)
[2021-02-27 15:14] LABS: INR-International Normal Ratio 1.1; Prothrombin Time 14.7 sec (12.0-14.7)
[2021-02-27 15:15] LABS: PTT 35.7 sec (22.9-36.1)
[2021-02-27 15:21] LABS: Anion Gap 19 mmol/L (10-20); BUN (Urea Nitrogen) 32 mg/dL (8.4-25.7); Calc. Creatinine Clearance 9 mL/min (70-130); Calcium 8.2 mg/dL (7.8-10.44); Carbon Dioxide 22 mmol/L (22-29); Chloride 100 mmol/L (98-107); Glucose 104 mg/dL (70-105); Sodium 136 mmol/L (136-145)
[2021-02-27 15:57] LABS: Actual Bicarbonate (HCO3a) 19.5 mEq/L (22-28); Base Excess (BEa) -1.6 mEq/L (-2.0 to +3.0); Calcium, Ionized (arterial) 1.03 mmol/L (1.12-1.30); Carboxyhemoglobin (COHb) 0.8 gm% (0.0-3.0); Hemoglobin (Hb) 11.9 g/dL (14.0-18.0); Potassium - ABG Lab 4.91 mmol/L (3.70-5.30); pH, Arterial 7.53 (7.35-7.45)
[2021-02-27 15:58] LABS: ALV-art Gradient 135.575 mmHg (0-20); CO2 Tension 23.7 mmHg (35.0-45.0); Puncture Site Arterial Line
[2021-02-27] MEDS: CEFAZOLIN 2 GM in Premix Bag 1 BAG IVPB SCH (16:08)
[2021-02-27] MEDS: Ondansetron PF 4 MG/2 ML Vial IVP PRN (16:50)
[2021-02-27] MEDS: Bisacodyl 5 MG TAB PO PRN (19:16)
[2021-02-27] MEDS: Famotidine/PF 20 mg/2ml Vial SLOW IVP SCH (19:17)
[2021-02-27] MEDS: hydrALAZINE 20 MG/ML VIAL SLOW IVP PRN (19:39)
[2021-02-27 20:49] LABS: Potassium 4.9 mmol/L (3.5-5.1)
[2021-02-27] MEDS: HYDROcodone/Acetaminophen 5/325 mg Tablet PO PRN (20:53)
[2021-02-28] MEDS: Fentanyl 100 MCG/2 ML VIAL SLOW IVP PRN ×5 (00:10→09:24)
[2021-02-28] MEDS: CEFAZOLIN 2 GM in Premix Bag 1 BAG IVPB SCH ×2 (02:04→09:19)
[2021-02-28] MEDS: HYDROcodone/Acetaminophen 5/325 mg Tablet PO PRN ×2 (03:02→08:22)
[2021-02-28 04:08] LABS: #Lymphocytes 0.4 thou/uL (1.20-3.40); #Monocytes 0.5 thou/uL (0.11-0.59); #Neutrophils 5.3 thou/uL (1.40-6.50); %Basophils 0.6 % (0.0-1.0); %Eosinophils 0.3 % (0.0-10.0); %Lymphocytes 6.4 % (21.0-51.0); %Monocytes 7.5 % (0.0-10.0); %Neutrophils 85.2 % (42.0-75.0); Hemoglobin 9.2 g/dL (14.0-18.0); Mean Corpuscular HGB CONC 34.6 g/dL (32.0-36.0); Mean Corpuscular Hemoglobin 33.4 pg (27.0-31.0); Mean Corpuscular Volume 96.4 fL (78.0-98.0); Mean Platelet Volume 9.6 fL (7.4-10.4); Platelet Count 95 thou/uL (130-400); Red Blood Cell (RBC) Count 2.75 mill/uL (4.70-6.10); White Blood Cell (WBC) Count 6.2 thou/uL (4.8-10.8)
[2021-02-28 04:25] LABS: Anion Gap 22 mmol/L (10-20); BUN (Urea Nitrogen) 39 mg/dL (8.4-25.7); Calc. Creatinine Clearance 8 mL/min (70-130); Carbon Dioxide 21 mmol/L (22-29); Chloride 96 mmol/L (98-107); Potassium 5.5 mmol/L (3.5-5.1); Sodium 133 mmol/L (136-145)
[2021-02-28 04:26] LABS: Calcium 8.6 mg/dL (7.8-10.44); Glucose 95 mg/dL (70-105)
[2021-02-28] MEDS: Nitroglycerin 50 MG/250 ML BOT 250 ML IVPB PRN ×2 (05:34→12:51)
[2021-02-28] MEDS: Ondansetron PF 4 MG/2 ML Vial IVP PRN (07:26)
[2021-02-28] MEDS: hydrALAZINE 25 MG TAB PO SCH ×3 (08:18→21:22)
[2021-02-28] MEDS: Aspirin Chewable 81 MG TAB PO SCH (08:18)
[2021-02-28] MEDS: Carvedilol 6.25 MG TAB PO SCH ×2 (08:19→17:47)
[2021-02-28] MEDS ORDERED: Amlodipine 5 MG TAB PO SCH (09:00)
[2021-02-28] MEDS ORDERED: diphenhydrAMINE 50 MG/ML VIAL IM PRN (11:33)
[2021-02-28] MEDS ORDERED: Ondansetron PF 4 MG/2 ML Vial IVP PRN (11:33)
[2021-02-28] MEDS ORDERED: Promethazine HCl 25 MG/ML VIAL IM PRN (11:33)
[2021-02-28] MEDS ORDERED: diphenhydrAMINE 25 MG CAP PO PRN (11:33)
[2021-02-28] MEDS ORDERED: diphenhydrAMINE 50 MG/ML VIAL IVP PRN (11:33)
[2021-02-28] MEDS ORDERED: Naloxone HCl 0.4 mg/ml Vial IV PRN (11:33)
[2021-02-28] MEDS ORDERED: Fentanyl 100 MCG/2 ML VIAL SLOW IVP SCH (11:45)
[2021-02-28] MEDS ORDERED: Communication Order-Pharmacy FS SCH (11:45)
[2021-02-28] MEDS ORDERED: Ketorolac Tromethamine 30 MG/ML VIAL IVP SCH (12:00)
[2021-02-28] MEDS: Fentanyl CADD 100 ML IV SCH (12:21)
[2021-02-28] MEDS: cloNIDine 0.1 MG TAB PO PRN (12:52)
[2021-02-28] MEDS: Benzonatate 100 MG CAP PO SCH ×2 (15:03→21:22)
[2021-02-28] MEDS: Acetaminophen 500 MG TAB PO SCH (17:46)
[2021-02-28] MEDS: cloNIDine 0.1 MG TAB PO SCH (21:21)
[2021-02-28] MEDS: Famotidine/PF 20 mg/2ml Vial SLOW IVP SCH (21:23)
[2021-02-28] MEDS: Amlodipine 5 MG TAB PO SCH (21:23)
[2021-03-01] MEDS: Acetaminophen 500 MG TAB PO SCH ×3 (00:12→12:07)
[2021-03-01] MEDS: Bisacodyl 5 MG TAB PO PRN (00:14)
[2021-03-01] MEDS ORDERED: Fentanyl CADD 100 ML ONE (00:19)
[2021-03-01] MEDS: hydrALAZINE 20 MG/ML VIAL SLOW IVP PRN ×3 (00:21→14:07)
[2021-03-01] MEDS: Fentanyl CADD 100 ML IV SCH (00:27)
[2021-03-01] MEDS: cloNIDine 0.1 MG TAB PO PRN ×2 (04:12→09:38)
[2021-03-01 04:30] LABS: #Basophils 0.1 thou/uL (0.0-0.2); #Eosinphils 0.1 thou/uL (0.0-0.7); #Lymphocytes 0.7 thou/uL (1.20-3.40); #Monocytes 0.7 thou/uL (0.11-0.59); #Neutrophils 5.9 thou/uL (1.40-6.50); %Basophils 0.8 % (0.0-1.0); %Eosinophils 1.2 % (0.0-10.0); %Lymphocytes 9.5 % (21.0-51.0); %Monocytes 9.1 % (0.0-10.0); %Neutrophils 79.4 % (42.0-75.0); Hemoglobin 9.1 g/dL (14.0-18.0); Mean Corpuscular Hemoglobin 33.7 pg (27.0-31.0); Mean Corpuscular Volume 96.4 fL (78.0-98.0); Mean Platelet Volume 10.1 fL (7.4-10.4); Platelet Count 91 thou/uL (130-400); RBC Distribution Width 17.4 % (11.5-14.5); White Blood Cell (WBC) Count 7.5 thou/uL (4.8-10.8)
[2021-03-01 04:54] LABS: Anion Gap 23 mmol/L (10-20); BUN (Urea Nitrogen) 35 mg/dL (8.4-25.7); Calc. Creatinine Clearance 9 mL/min (70-130); Calcium 8.9 mg/dL (7.8-10.44); Carbon Dioxide 21 mmol/L (22-29); Chloride 93 mmol/L (98-107); Glucose 85 mg/dL (70-105); Potassium 4.8 mmol/L (3.5-5.1); Sodium 132 mmol/L (136-145)
[2021-03-01] MEDS ORDERED: Mineral Oil ENEMA PR PRN (07:30)
[2021-03-01] MEDS ORDERED: Mag-Al 1200 mg/1200 mg/30 ML UDCUP PO PRN (07:30)
[2021-03-01] MEDS ORDERED: Bisacodyl 5 MG TAB PO PRN (07:30)
[2021-03-01] MEDS ORDERED: Nitroglycerin 0.4 MG TAB (25 Tab Bottle) SL PRN (07:30)
[2021-03-01] MEDS ORDERED: diphenhydrAMINE 25 MG CAP PO PRN (07:30)
[2021-03-01] MEDS ORDERED: Bisacodyl 10 MG SUPP PR PRN (07:30)
[2021-03-01] MEDS: Carvedilol 6.25 MG TAB PO SCH ×2 (07:33→18:08)
[2021-03-01] MEDS: Amlodipine 5 MG TAB PO SCH ×2 (08:26→22:09)
[2021-03-01] MEDS: hydrALAZINE 25 MG TAB PO SCH ×3 (08:26→22:09)
[2021-03-01] MEDS: Aspirin Chewable 81 MG TAB PO SCH (08:27)
[2021-03-01] MEDS: Benzonatate 100 MG CAP PO SCH ×3 (08:30→22:08)
[2021-03-01] MEDS: cloNIDine 0.1 MG TAB PO SCH ×3 (08:31→22:08)
[2021-03-01] MEDS ORDERED: Famotidine 20 MG TAB PO SCH (09:00)
[2021-03-01] MEDS ORDERED: Amlodipine 5 MG TAB PO SCH (11:45)
[2021-03-01] MEDS ORDERED: HYDROcodone/Acetaminophen 10/325 mg Tablet PO PRN (13:16)
[2021-03-01] MEDS ORDERED: traMADol HCl 50 MG TAB PO PRN (13:17)
[2021-03-01] MEDS: HYDROcodone/Acetaminophen 10/325 mg Tablet PO PRN ×3 (14:06→22:56)
[2021-03-01] MEDS: Fentanyl 100 MCG/2 ML VIAL SLOW IVP PRN ×3 (14:13→22:10)
[2021-03-02] MEDS: hydrALAZINE 20 MG/ML VIAL SLOW IVP PRN (00:59)
[2021-03-02] MEDS: Fentanyl 100 MCG/2 ML VIAL SLOW IVP PRN (01:00)
[2021-03-02] MEDS: HYDROcodone/Acetaminophen 10/325 mg Tablet PO PRN ×4 (03:19→20:49)
[2021-03-02] MEDS ORDERED: traMADol HCl 50 MG TAB PO PRN (10:23)
[2021-03-02] MEDS: hydrALAZINE 25 MG TAB PO SCH ×3 (11:56→20:43)
[2021-03-02] MEDS: Carvedilol 6.25 MG TAB PO SCH ×2 (11:57→17:12)
[2021-03-02] MEDS: Amlodipine 5 MG TAB PO SCH ×2 (11:58→20:42)
[2021-03-02] MEDS: Aspirin Chewable 81 MG TAB PO SCH (11:58)
[2021-03-02] MEDS: cloNIDine 0.1 MG TAB PO SCH ×3 (11:58→20:43)
[2021-03-02] MEDS: Famotidine 20 MG TAB PO SCH (11:58)
[2021-03-02] MEDS: Benzonatate 100 MG CAP PO SCH ×3 (11:59→20:43)
[2021-03-03] MEDS: hydrALAZINE 20 MG/ML VIAL SLOW IVP PRN ×3 (00:32→06:20)
[2021-03-03] MEDS: Carvedilol 6.25 MG TAB PO SCH ×2 (09:29→17:26)
[2021-03-03] MEDS: Benzonatate 100 MG CAP PO SCH ×3 (09:30→19:59)
[2021-03-03] MEDS: Amlodipine 5 MG TAB PO SCH ×2 (09:30→19:59)
[2021-03-03] MEDS: cloNIDine 0.1 MG TAB PO SCH ×2 (09:31→19:59)
[2021-03-03] MEDS: hydrALAZINE 25 MG TAB PO SCH ×3 (09:31→19:59)
[2021-03-03] MEDS: Famotidine 20 MG TAB PO SCH (09:31)
[2021-03-03] MEDS: HYDROcodone/Acetaminophen 10/325 mg Tablet PO PRN ×3 (10:02→19:59)
[2021-03-03] MEDS: Aspirin Chewable 81 MG TAB PO SCH (10:07)
[2021-03-04] MEDS: HYDROcodone/Acetaminophen 10/325 mg Tablet PO PRN ×2 (03:10→09:44)
[2021-03-04] MEDS: Carvedilol 6.25 MG TAB PO SCH (09:41)
[2021-03-04] MEDS: Amlodipine 5 MG TAB PO SCH (09:42)
[2021-03-04] MEDS: Benzonatate 100 MG CAP PO SCH (09:43)
[2021-03-04] MEDS: Famotidine 20 MG TAB PO SCH (09:43)
[2021-03-04] MEDS: Aspirin Chewable 81 MG TAB PO SCH (09:43)
[2021-03-04] MEDS: hydrALAZINE 25 MG TAB PO SCH (09:43)
[2021-03-04] MEDS: cloNIDine 0.1 MG TAB PO SCH (09:43)
[2021-03-04 11:27] VITALS: TEMP 98.3
[2021-03-04 13:11] VITALS: BP 146/80
[2021-03-04] MEDS ORDERED: Rosuvastatin 10 MG TAB PO SCH (21:00)
[2021-03-05 10:20] LABS: Actual Bicarbonate (HCO3a) 25.2 mEq/L (22-28); Analyzer IN Cardio OR; Base Excess (BEa) -0.8 mEq/L (-2.0 to +3.0); CO2 Tension 49.1 mmHg (35.0-45.0); Hemoglobin (Hb) 7.6 g/dL (14.0-18.0); O2 Tension (PaO2), arterial 411.2 mmHg (80.0-100.0); Potassium - ABG Lab 4.85 mmol/L (3.70-5.30); pH, Arterial 7.33 (7.35-7.45)
[2021-03-05 10:20] LABS: Actual Bicarbonate (HCO3a) 26.2 mEq/L (22-28); Analyzer IN Cardio OR; Base Excess (BEa) 1.8 mEq/L (-2.0 to +3.0); CO2 Tension 40.6 mmHg (35.0-45.0); Calcium, Ionized (arterial) 1.06 mmol/L (1.12-1.30); Carboxyhemoglobin (COHb) 0.9 gm% (0.0-3.0); Hemoglobin (Hb) 9.6 g/dL (14.0-18.0); O2 Tension (PaO2), arterial 434.7 mmHg (80.0-100.0); Potassium - ABG Lab 4.46 mmol/L (3.70-5.30); pH, Arterial 7.43 (7.35-7.45)
[2021-03-05 10:22] LABS: Actual Bicarbonate (HCO3a) 24.8 mEq/L (22-28); Analyzer IN Cardio OR; Base Excess (BEa) -0.4 mEq/L (-2.0 to +3.0); CO2 Tension 43.4 mmHg (35.0-45.0); Calcium, Ionized (arterial) 1.01 mmol/L (1.12-1.30); O2 Tension (PaO2), arterial 407.2 mmHg (80.0-100.0); Potassium - ABG Lab 5.08 mmol/L (3.70-5.30); pH, Arterial 7.38 (7.35-7.45)
[2021-03-05 10:23] LABS: Actual Bicarbonate (HCO3a) 17.8 mEq/L (22-28); Analyzer IN Cardio OR; Base Excess (BEa) -6.1 mEq/L (-2.0 to +3.0); CO2 Tension 28.8 mmHg (35.0-45.0); Calcium, Ionized (arterial) 0.89 mmol/L (1.12-1.30); Hemoglobin (Hb) 7.7 g/dL (14.0-18.0); O2 Tension (PaO2), arterial 369.5 mmHg (80.0-100.0); Potassium - ABG Lab 3.76 mmol/L (3.70-5.30); pH, Arterial 7.41 (7.35-7.45)
[2021-03-05 10:23] LABS: Puncture Site Arterial Line
[2021-03-05 10:24] LABS: Puncture Site Arterial Line
[2021-03-05 10:24] LABS: Puncture Site Arterial Line
[2021-03-05 10:25] LABS: Puncture Site Arterial Line
== END 2021-03-04 13:55 | disposition home or self-care (01) | DRG 233 ==
LOC: ERS 10:09 → 2SW 13:30 → OBSVTOIN 13:30 → 2NO 02-24 15:23 → CCU 02-27 09:13 → 2NO 03-01 15:16
PROVIDERS: ADMIT Family Medicine; ATTEND Family Medicine
PROC: 4A023N7 Measurement of Cardiac Sampling and Pressure, Left Heart, Percutaneous Approach (ICD-10-PCS; principal; 2021-02-23)
PROC: B2111ZZ Fluoroscopy of Multiple Coronary Arteries using Low Osmolar Contrast (ICD-10-PCS; 2021-02-23)
PROC: B2151ZZ Fluoroscopy of Left Heart using Low Osmolar Contrast (ICD-10-PCS; 2021-02-23)
PROC: 5A1D70Z Performance of Urinary Filtration, Intermittent, Less than 6 Hours Per Day (ICD-10-PCS; 2021-02-23)
PROC: 021009W Bypass Coronary Artery, One Artery from Aorta with Autologous Venous Tissue, Open Approach (ICD-10-PCS; 2021-02-28)
PROC: 02100Z9 Bypass Coronary Artery, One Artery from Left Internal Mammary, Open Approach (ICD-10-PCS; 2021-02-28)
PROC: 06BQ0ZZ Excision of Left Saphenous Vein, Open Approach (ICD-10-PCS; 2021-02-28)
PROC: 5A1221Z Performance of Cardiac Output, Continuous (ICD-10-PCS; 2021-02-28)
DX: I21.4 Non-ST elevation (NSTEMI) myocardial infarction (principal); N18.6 End stage renal disease; I12.0 Hypertensive chronic kidney disease with stage 5 chronic kidney disease or end stage renal disease; G62.9 Polyneuropathy, unspecified; G43.909 Migraine, unspecified, not intractable, without status migrainosus; F17.210 Nicotine dependence, cigarettes, uncomplicated; R11.0 Nausea; R11.10 Vomiting, unspecified; G89.29 Other chronic pain; D63.8 Anemia in other chronic diseases classified elsewhere; I34.0 Nonrheumatic mitral (valve) insufficiency; M79.602 Pain in left arm; M79.601 Pain in right arm; R00.1 Bradycardia, unspecified; I25.10 Atherosclerotic heart disease of native coronary artery without angina pectoris; E87.5 Hyperkalemia; Z99.2 Dependence on renal dialysis; Z88.1 Allergy status to other antibiotic agents; Z91.040 Latex allergy status; Z88.8 Allergy status to other drugs, medicaments and biological substances; Z91.018 Allergy to other foods; Z20.822 Contact with and (suspected) exposure to COVID-19
CPT/HCPCS: 36415; 36416; 36430; 71045; 76942; 80048; 80053; 82550; 82553; 82805; 84134; 84484; 85014; 85018; 85025; 85049; 85610; 85730; 86850; 86900; 86901; 87340; 87635; 90935; 93005; 93010; 93458; 93798; 94002; 94150; 94760; 96374; 96375; 97139; 99152; 99153; G0257; G0378; J0360; J0690; J1642; J1644; J1815; J2001; J2060; J2250; J2270; J2405; J2440; J2597; J2704; J2720; J3010; J3370; J3475; J3480; P9016; P9035; P9045; Q0162; Q9967; S0017; S0028; U0003; U0005

== ENCOUNTER 2021-03-28 03:18 | Emergency (ER) | payer MEDICARE ==
[2021-03-28] MEDS ORDERED: Ondansetron ODT 4 MG TAB ONE (04:36)
== END 2021-03-28 05:07 | disposition home or self-care (01) ==
LOC: ERS 03:18
DX: S70.12XA Contusion of left thigh, initial encounter (principal); I12.0 Hypertensive chronic kidney disease with stage 5 chronic kidney disease or end stage renal disease; N18.6 End stage renal disease; F17.210 Nicotine dependence, cigarettes, uncomplicated; Z79.899 Other long term (current) drug therapy; X58.XXXA Exposure to other specified factors, initial encounter
CPT/HCPCS: Q0162

== ENCOUNTER 2021-03-30 18:10 | Emergency (ER) | payer MEDICARE ==
[2021-03-30] MEDS ORDERED: Lidocaine 1% w/Epinephrine 1:100K 20 ML VIAL ONE (19:40)
== END 2021-03-30 20:17 | disposition home or self-care (01) ==
LOC: ERS 18:10
DX: L02.416 Cutaneous abscess of left lower limb (principal); I25.10 Atherosclerotic heart disease of native coronary artery without angina pectoris; G43.909 Migraine, unspecified, not intractable, without status migrainosus; I12.0 Hypertensive chronic kidney disease with stage 5 chronic kidney disease or end stage renal disease; N18.6 End stage renal disease; G62.9 Polyneuropathy, unspecified; F17.210 Nicotine dependence, cigarettes, uncomplicated; Z99.2 Dependence on renal dialysis; Z79.899 Other long term (current) drug therapy
CPT/HCPCS: 10060

== ENCOUNTER 2021-10-08 02:33 | Emergency (ER) | payer MEDICARE ==
[2021-10-08] MEDS ORDERED: Morphine 4 MG/ML VIAL ONE (03:07)
[2021-10-08] MEDS ORDERED: Ondansetron PF 4 MG/2 ML Vial ONE (03:08)
[2021-10-08 03:30] LABS: #Basophils 0.1 thou/uL (0.0-0.2); #Eosinphils 0.2 thou/uL (0.0-0.7); #Lymphocytes 1.2 thou/uL (1.20-3.40); #Monocytes 0.4 thou/uL (0.11-0.59); #Neutrophils 3.2 thou/uL (1.40-6.50); %Basophils 1.2 % (0.0-1.0); %Eosinophils 4.7 % (0.0-10.0); %Lymphocytes 23.3 % (21.0-51.0); %Monocytes 8.7 % (0.0-10.0); %Neutrophils 62.2 % (42.0-75.0); Hemoglobin 11.1 g/dL (14.0-18.0); Mean Corpuscular Hemoglobin 34.4 pg (27.0-31.0); Mean Corpuscular Volume 98.4 fL (78.0-98.0); Platelet Count 181 thou/uL (130-400); RBC Distribution Width 13.7 % (11.5-14.5); Red Blood Cell (RBC) Count 3.21 mill/uL (4.70-6.10); White Blood Cell (WBC) Count 5.1 thou/uL (4.8-10.8)
[2021-10-08 04:36] LABS: ALT (SGPT) Less than 7 U/L (8-55); AST (SGOT) 14 U/L (5-34); Albumin 3.8 g/dL (3.5-5.0); Alkaline Phosphatase 76 U/L (40-110); Anion Gap 28 mmol/L (10-20); BUN (Urea Nitrogen) 58 mg/dL (8.4-25.7); Bilirubin, Total 0.6 mg/dL (0.2-1.2); Calc. Creatinine Clearance 0 mL/min (70-130); Calcium 9.4 mg/dL (7.8-10.44); Carbon Dioxide 23 mmol/L (22-29); Chloride 85 mmol/L (98-107); Globulin 2.9 g/dL (2.4-3.5); Glucose 61 mg/dL (70-105); Potassium 6.4 mmol/L (3.5-5.1); Protein, Total 6.7 g/dL (6.0-8.3); Sodium 130 mmol/L (136-145)
== END 2021-10-08 05:06 | disposition home or self-care (01) ==
LOC: ERS 02:33
DX: E87.5 Hyperkalemia (principal); R60.0 Localized edema; I25.10 Atherosclerotic heart disease of native coronary artery without angina pectoris; I12.0 Hypertensive chronic kidney disease with stage 5 chronic kidney disease or end stage renal disease; E11.22 Type 2 diabetes mellitus with diabetic chronic kidney disease; N18.6 End stage renal disease; E11.40 Type 2 diabetes mellitus with diabetic neuropathy, unspecified; F17.210 Nicotine dependence, cigarettes, uncomplicated; Z99.2 Dependence on renal dialysis
CPT/HCPCS: 71045; 80053; 85025; 93005; 96374; 96375; J2270; J2405

== ENCOUNTER 2021-11-06 13:48 | Outpatient (CLI) | payer MEDICARE | END 2021-11-06 13:49 | disposition home or self-care (01) | LOC: BICCT 13:48 | PROVIDERS: ATTEND Neurological Surgery | DX: I62.00 Nontraumatic subdural hemorrhage, unspecified (principal) | CPT/HCPCS: 70450 ==

== ENCOUNTER 2021-11-23 05:16 | Emergency (ER) | payer MEDICARE ==
[2021-11-23 07:19] LABS: #Basophils 0.1 thou/uL (0.0-0.2); #Eosinphils 0.3 thou/uL (0.0-0.7); #Lymphocytes 0.8 thou/uL (1.20-3.40); #Monocytes 0.3 thou/uL (0.11-0.59); #Neutrophils 2.4 thou/uL (1.40-6.50); %Basophils 1.5 % (0.0-1.0); %Eosinophils 7.7 % (0.0-10.0); %Lymphocytes 20.9 % (21.0-51.0); %Monocytes 7.8 % (0.0-10.0); %Neutrophils 62.1 % (42.0-75.0); Hemoglobin 10.2 g/dL (14.0-18.0); Mean Corpuscular HGB CONC 34.8 g/dL (32.0-36.0); Mean Corpuscular Hemoglobin 33.9 pg (27.0-31.0); Mean Corpuscular Volume 97.4 fL (78.0-98.0); Mean Platelet Volume 7.8 fL (7.4-10.4); Platelet Count 180 thou/uL (130-400); RBC Distribution Width 13.3 % (11.5-14.5); Red Blood Cell (RBC) Count 3.01 mill/uL (4.70-6.10); White Blood Cell (WBC) Count 3.9 thou/uL (4.8-10.8)
[2021-11-23 07:32] LABS: ALT (SGPT) Less than 7 U/L (8-55); AST (SGOT) 10 U/L (5-34); Albumin 3.8 g/dL (3.5-5.0); Alkaline Phosphatase 101 U/L (40-110); Anion Gap 19 mmol/L (10-20); BUN (Urea Nitrogen) 18 mg/dL (8.4-25.7); Bilirubin, Total 0.6 mg/dL (0.2-1.2); Calc. Creatinine Clearance 0 mL/min (70-130); Calcium 10.2 mg/dL (7.8-10.44); Carbon Dioxide 31 mmol/L (22-29); Chloride 91 mmol/L (98-107); Globulin 3.1 g/dL (2.4-3.5); Glucose 83 mg/dL (70-105); Lipase 16 U/L (8-78); Potassium 4.4 mmol/L (3.5-5.1); Protein, Total 6.9 g/dL (6.0-8.3); Sodium 137 mmol/L (136-145)
[2021-11-23 08:26] LABS: SARS-CoV-2 NAA Rapid Test Not Detected (NotDetected)
== END 2021-11-23 08:40 | disposition home or self-care (01) ==
LOC: ERS 05:16
DX: J06.9 Acute upper respiratory infection, unspecified (principal); R11.2 Nausea with vomiting, unspecified; Z20.822 Contact with and (suspected) exposure to COVID-19; I12.0 Hypertensive chronic kidney disease with stage 5 chronic kidney disease or end stage renal disease; N18.6 End stage renal disease; I25.10 Atherosclerotic heart disease of native coronary artery without angina pectoris; G43.909 Migraine, unspecified, not intractable, without status migrainosus; F17.210 Nicotine dependence, cigarettes, uncomplicated
CPT/HCPCS: 80053; 83690; 85025; U0002; 36415; 99284

== ENCOUNTER 2021-12-19 18:50 | Emergency (ER) | payer MEDICARE ==
[2021-12-19 20:48] LABS: #Basophils 0.1 thou/uL (0.0-0.2); #Eosinphils 0.4 thou/uL (0.0-0.7); #Lymphocytes 0.9 thou/uL (1.20-3.40); #Monocytes 0.4 thou/uL (0.11-0.59); #Neutrophils 4.7 thou/uL (1.40-6.50); %Basophils 1.5 % (0.0-1.0); %Eosinophils 5.5 % (0.0-10.0); %Lymphocytes 13.4 % (21.0-51.0); %Monocytes 6.3 % (0.0-10.0); %Neutrophils 73.2 % (42.0-75.0); Hemoglobin 10.1 g/dL (14.0-18.0); Mean Corpuscular HGB CONC 34.1 g/dL (32.0-36.0); Mean Corpuscular Hemoglobin 32.4 pg (27.0-31.0); Mean Corpuscular Volume 95.1 fL (78.0-98.0); Mean Platelet Volume 8.1 fL (7.4-10.4); Platelet Count 181 thou/uL (130-400); RBC Distribution Width 13.3 % (11.5-14.5); Red Blood Cell (RBC) Count 3.11 mill/uL (4.70-6.10); White Blood Cell (WBC) Count 6.4 thou/uL (4.8-10.8)
[2021-12-19 21:02] LABS: ALT (SGPT) 7 U/L (8-55); AST (SGOT) 16 U/L (5-34); Albumin 4.1 g/dL (3.5-5.0); Alkaline Phosphatase 105 U/L (40-110); Anion Gap 24 mmol/L (10-20); BUN (Urea Nitrogen) 39 mg/dL (8.4-25.7); Bilirubin, Total 0.7 mg/dL (0.2-1.2); CK (CPK) 252 U/L (30-200); Calc. Creatinine Clearance 0 mL/min (70-130); Calcium 9.9 mg/dL (7.8-10.44); Carbon Dioxide 23 mmol/L (22-29); Chloride 88 mmol/L (98-107); Globulin 3.6 g/dL (2.4-3.5); Glucose 84 mg/dL (70-105); Protein, Total 7.7 g/dL (6.0-8.3); Sodium 131 mmol/L (136-145)
[2021-12-19] MEDS ORDERED: HYDROcodone/Acetaminophen 5/325 mg Tablet ONE (22:29)
== END 2021-12-19 22:41 | disposition home or self-care (01) ==
LOC: ERS 18:50
DX: S01.111A Laceration without foreign body of right eyelid and periocular area, initial encounter (principal); S90.112A Contusion of left great toe without damage to nail, initial encounter; I25.10 Atherosclerotic heart disease of native coronary artery without angina pectoris; I12.0 Hypertensive chronic kidney disease with stage 5 chronic kidney disease or end stage renal disease; N18.6 End stage renal disease; F17.210 Nicotine dependence, cigarettes, uncomplicated; G43.909 Migraine, unspecified, not intractable, without status migrainosus; Z99.2 Dependence on renal dialysis; W19.XXXA Unspecified fall, initial encounter
CPT/HCPCS: 12011; 36415; 70450; 71045; 72125; 80053; 82550; 83880; 84484; 85025; 93005